=== PATIENT | male | born 1945 | race Caucasian/White ===

== ENCOUNTER 2020-04-11 05:13 | Emergency (ER) | payer MEDICARE, SELFPAY ==
--- NOTE | 2020-04-11 05:19 | ED_ITS ---
HPI - Altered Mental Status General Chief Complaint: Altered Mental Status Stated Complaint: altered Time Seen by Provider: 04/11/20 05:18 Source: patient and EMS Mode of arrival: EMS Limitations: altered mental status Related Data Allergies Allergy/AdvReac Type Severity Reaction Status Date / Time No Known Allergies Allergy Unverified 12/05/19 19:07 [No Known Allergies*] Review of Systems Review of Systems: Constitutional : No Weight loss, No Fever, No Chills, No Fatigue, No Malaise ENT/Mouth : No sore throat, No Rhinorrhea Eyes: No Eye Pain, No Swelling, No Redness Cardiovascular : No Chest Pain, No SOB, No Dyspnea on Exertion Respiratory : No Cough, No Sputum, No Wheezing Gastrointestinal : No Nausea, No Vomiting, No Diarrhea, No Constipation, No abdominal Pain, No Hematochezia, No Melena Genitourinary : No Dysuria, No Urinary Frequency, No Hematuria, Musculoskeletal : No joint pain, No Myalgias, No Joint Swelling Skin : No Skin Lesions, No rash Neuro : No Weakness, No Numbness, No Dizziness, No Headache Psych : No Anxiety/Panic, No Depression All other systems reviewed and are negative FOR[facility]LY [facility] Past Medical History Attestation statement: The following information was validated with the patient. Medical History Asthma Diabetes HTN (hypertension) Hyperlipemia Social History Social History (Updated 04/11/20 @ 05:20 by Margo Dejesus DO) Smoking Status: Never smoker Use of substances other than those prescribed or required for medical reasons: No Physical Exam Vital Signs: Vital Signs: Last Vital Signs Temp 98.4 F 04/11/20 05:55 Pulse 73 04/11/20 05:55 Resp 20 04/11/20 05:55 BP 154/86 H 04/11/20 05:55 Pulse Ox 93 04/11/20 05:55 Body Mass Index 32.3 Appearance: Alert. Oriented X2. No acute distress. Eyes: Pupils equal, round and reactive to light. ENT: Pharynx normal. Neck: Normal inspection. Neck supple. CVS: Normal heart rate and rhythm. Pulses normal. Respiratory: No respiratory distress. Breath sounds normal. Abdomen: Soft and non-tender. Skin: Skin warm and dry. Normal skin color. Normal skin turgor. Extremities: No lower extremity edema. No calf ttp Neuro: Oriented X 2. No motor deficit. No sensory deficit. No drift NIH Stroke Scale Internal: Initial- Upon Arrival Level of Consciousness: Alert Level of Consciousness Questions: Answers one question correctly Level of Consciousness Commands: Performs both tasks correctly Best Gaze: Normal Visual: No visual loss Facial Palsy: Normal Motor Arm (Right): No drift Motor Arm (Left): No drift Motor Leg (Right): No drift Motor Leg (Left): No drift Limb Ataxia: Absent Sensory: Normal Best Language: No aphasia Dysarthia: Normal Extinction and Inattention: No abnormality Score: 1 Course Course Course Narrative: found number in [facility] [phone] no answer - listed as a Naomi - patient states he has no NOK or emergency contacts signed out to Dr. Iglesias pending full workup MDM - Altered Mental Status MDM Narrative Medical decision making narrative: 74 yo male found driving, dressed up thought he was going to [employer] he is alert and oriented to person and place, last known well not known states he feels like himself no NOK to call at this time, no focal deficits, RNs noted he was wobbly upon standing - at this time no focal deficits other than confusion with last known well not known at this time, given unknown window he is not a tPa candidate, labs, CXR, UA, CT head ordered - dispo per results and findings. ECG Data ECG #1: Attestation: I personally reviewed and interpreted this ECG as follows: ECG interpretation date: 04/11/20 ECG interpretation time: 05:35 Interpretation: Rate: 76 Rhythm: NSR Alden: left Normal P waves. Normal HORACE. Normal QRS complex. ST T wave : inverted 1 and aVL, nonspecific V5-6, no JANE qTC: normal prior studies: unchanged 2018 The study has been interpreted contemporaneously by me. . Discharge Plan Discharge Clinical Impression: Altered mental status Qualifiers: Altered mental status type: unspecified Qualified Code(s): R41.82 - Altered mental status, unspecified
[2020-04-11 05:25] VITALS: BMI 32.3
--- NOTE | 2020-04-11 05:26 | ECG_ITS ---
Test Reason : AMS Blood Pressure : / mmHG Vent. Rate : 076 BPM Atrial Rate : 076 BPM P-R Int : 106 ms QRS Dur : 080 ms QT Int : 368 ms P-R-T Axes : 032 -11 088 degrees QTc Int : 414 ms Sinus rhythm with short NH with Premature atrial complexes Nonspecific T wave abnormality Abnormal ECG When compared with ECG of 25-AUG-2018 17:51, Premature atrial complexes Present Referred By: Margo Dejesus Electronically Signed By:TITO TAYLOR
--- NOTE | 2020-04-11 05:26 | CT_ITS ---
EXAMINATION: CT HEAD WITHOUT CONTRAST CLINICAL INFORMATION: Altered mental status COMPARISON: None TECHNIQUE: Contiguous axial imaging was performed from the skull base to vertex without intravenous administration of contrast. This CT examination was performed using dose optimization techniques as appropriate, variously including the following: *Automated exposure control *Adjustment of mA and/or kV according to patient size (this includes techniques or standardized protocols for targeted exams where dose is matched to indication/reason for exam; i.e. extremities or head) *Use of iterative reconstruction technique DLP: 795 mGy-cm FINDINGS: There is no evidence of acute intracranial hemorrhage or territorial infarction. No abnormal mass effect or midline shift is seen. Yeh to white matter differentiation is well preserved. No extra-axial fluid collections are identified. The ventricles are normal in size. There is moderate periventricular white matter hypoattenuation consistent with chronic small vessel ischemic disease. Moderate volume loss is noted. The osseous structures and soft tissues are normal. Mucosal thickening of the right sphenoid sinus. Opacification of the left mastoid air cells. CT/CT head/brain wo con IMPRESSION: No acute intracranial pathology. Chronic small vessel ischemic disease and volume loss.
--- NOTE | 2020-04-11 05:27 | XR_ITS ---
EXAMINATION: XR CHEST CLINICAL INFORMATION: Altered mental status COMPARISON: 04/28/2018 TECHNIQUE: Frontal view of the chest was obtained. FINDINGS: Lung volumes are symmetric. Linear left basilar opacity favors atelectasis. No additional consolidation bilaterally. No evidence of pneumothorax, pleural effusion, or pulmonary edema. The cardiomediastinal contour is unremarkable. No acute osseous findings are seen. XR/XR chest 1V IMPRESSION: No acute cardiopulmonary findings.
[2020-04-11 05:55] VITALS: BP 154/86; PULSE 73; RESP 20; TEMP 36.9; O2SAT 93
[2020-04-11 07:03] LABS: INTERNATIONAL NORM RATIO 1.2 (0.9-1.1); Prothrombin Time 14.3 SEC (10.8-13.0)
[2020-04-11 07:03] LABS: Basophils Percent Auto 0.3 % (0-2); Eosinophils Percent Auto 0.6 % (0-4); Imm Gran Abs Auto 0.01 X10*3/uL (0.00-0.03); Imm Gran Pct Auto 0.3 % (0.0-0.4); MANUAL DIFF FLAG SCAN; PLT CLUMP 1; SCAN SMEAR FLAG 1
[2020-04-11 07:05] LABS: Hematocrit 48.9 % (42-52); Hemoglobin 15.8 g/dl (14.0-18.0); Lymphocytes Percent Auto 28.3 % (20-40); Mean Corpuscular HGB Conc 32.3 g/dl (31.0-36.0); Mean Corpuscular Hemoglobin 31.9 pg (27.0-33.0); Mean Corpuscular Volume 98.8 fL (80-98); Mean Platelet Volume 11.8 fL (9.4-12.4); Monocytes Absolute Auto 0.4 X10*3/uL (0.1-1.2); Monocytes Percent Auto 12.5 % (2-11); Platelet Count 119 X10*3/uL (160-400); Red Blood Count 4.95 X10*6/uL (4.60-5.80); Red Cell Distribution Width 11.9 % (11.0-16.0); White Blood Count 3.4 X10*3/uL (4.8-10.8)
[2020-04-11 07:06] LABS: Partial Thromboplastin Time 35.2 SEC (24.1-38.0)
--- NOTE | 2020-04-11 07:09 | PC.NURSE ---
pt refused covid swab pt pulling it out while in process, pt was a difficult stick due to he pulls away and raises his legs. pt spoke in malay and stated that his better arm is his left and labs and iv obtained at the left ac 20g. this was a 2 assist to hold the pt arm. pt is talking with clear voice, only alert to who is now president. pt unable to tell us what he was doing all dressed up and driving from unknown to unknown, one time he says [email or web address] and then he say [employer]. staff members assisted with obtaining this information along with dr burns questions asked on pt arrival information was obtainable. pt has a flip cell phone but it is not connected to a service. pt is well dressed as if he was going to denominational, pt eyes light up when this was stated. labs and first set of cultures drawn, pt taken to ct, no s/s of injury noted. pt skin warm and dry. pt focus and tracks. moves all extremities with equa brayan strength. reprt given to Heraclio keys.
[2020-04-11 07:19] LABS: Ammonia 20 umol/L (13-55)
[2020-04-11 07:21] LABS: Ethanol < 10 mg/dL; Lactic Acid 1.1 mmol/L (0.5-2.0)
[2020-04-11 07:25] LABS: Alanine Aminotransferase 20 U/L (0-40); Albumin Level 4.1 g/dL (3.5-5.0); Alkaline Phosphatase 75 U/L (39-117); Anion Gap 15 (12-20); Aspartate Amino Transferase 30 U/L (5-37); Bilirubin Direct 0.3 mg/dL (0.0-0.5); Bilirubin Total 0.8 mg/dL (0.0-1.0); Blood Urea Nitrogen 15 mg/dL (9-16); Calcium 8.9 mg/dL (8.4-10.2); Carbon Dioxide 28 mmol/L (22-29); Chloride 104 mmol/L (96-108); Creatinine Clr Calc Pharmacy 67.7; Estimated Glomerular Filt Rate > 60; Glucose Random 168 mg/dL (60-115); Lipase 24 U/L (8-78); Magnesium 1.5 mg/dL (1.6-2.6); Potassium 4.1 mmol/l (3.3-5.1); Sodium 143 mmol/L (135-145); Total Protein 7.2 g/dL (6.5-8.0)
[2020-04-11 07:45] LABS: Thyroid Stimulating Hormone 0.97 uIU/mL (0.32-4.0)
[2020-04-11 07:53] LABS: Troponin-I High Sensitivity 8.4 ng/L (<3.5-35.0)
[2020-04-11 08:20] LABS: HCO3 VBG 30 mmol/L; PCO2 VBG 48 mmHg; PO2 VBG 39 mmHg; pH VBG 7.39 (7.32-7.43)
[2020-04-11 09:33] VITALS: BP 141/84; PULSE 74; RESP 18
[2020-04-11 11:47] LABS: Glucose, Whole Blood 171 mg/dL (60-115)
[2020-04-11 12:04] LABS: Glucose Urine UA 100 MG/DL (NEG); Leukocyte Esterase Urine NEG (NEG); Nitrite Urine NEG (NEG); PH 5.5 (5.0-8.0); Specific Gravity - Urine 1.025 (1.005-1.025); Urine Blood NEG (NEG); Urine Ketones 15 MG/DL (NEG); Urine Protein TRACE MG/DL (NEG-TRACE)
[2020-04-11 12:05] LABS: Appearance Urine CLEAR; Color Urine YELLOW
--- NOTE | 2020-04-11 12:10 | PC.NURSE ---
Physician and RN WOUND CARE at bedside. patient confused. physician indicated case management
--- NOTE | 2020-04-11 12:15 | ED.AMS ---
HPI - Altered Mental Status General Chief Complaint: Altered Mental Status Stated Complaint: altered Time Seen by Provider: 04/11/20 05:18 Source: patient and EMS Mode of arrival: EMS Limitations: altered mental status Related Data Previous Rx's Medication Instructions Recorded donepezil [Aricept] 10 mg PO BEDTIME #30 tab 04/11/20 Allergies Allergy/AdvReac Type Severity Reaction Status Date / Time No Known Allergies Allergy Unverified 12/05/19 19:07 [No Known Allergies*] [facility] Past Medical History Medical History Asthma Diabetes HTN (hypertension) Hyperlipemia Social History Social History (Updated 04/11/20 @ 05:20 by Margo Dejesus DO) Smoking Status: Never smoker Use of substances other than those prescribed or required for medical reasons: No Advance Directives: No Advance Directives Information Provided: No Physical Exam Vital Signs: Vital Signs: Last Vital Signs Temp 98.4 F 04/11/20 05:55 Pulse 74 04/11/20 09:33 Resp 18 04/11/20 09:33 BP 141/84 H 04/11/20 09:33 Pulse Ox 93 04/11/20 05:55 Body Mass Index 32.3 Course Course Course Narrative: Patient seen and re-evaluated clinically patient has moderate dementia which is going on for last few months per his family. Workup is negative otherwise. Family at bedside will discharge the patient home with family MDM - Altered Mental Status Lab Data Result diagrams: 04/11/20 06:35 04/11/20 06:35 Labs: Lab Results 04/11/20 04/11/20 04/11/20 Range/Units 06:34 06:34 06:34 WBC (4.8-10.8) X10*3/uL RBC (4.60-5.80) X10*6/uL Hgb (14.0-18.0) g/dl Hct (42-52) % MCV (80-98) fL MCH (27.0-33.0) pg MCHC (31.0-36.0) g/dl RDW (11.0-16.0) % Plt Count (160-400) X10*3/uL MPV (9.4-12.4) fL Immature Gran % (Auto) (0.0-0.4) % Neut % (Auto) (45-73) % Lymph % (Auto) (20-40) % [place] % (Auto) (2-11) % Eos % (Auto) (0-4) % Baso % (Auto) (0-2) % Lymph # (Auto) (1.2-4.9) X10*3/uL [place] # (Auto) (0.1-1.2) X10*3/uL Eos # (Auto) (0.0-0.4) X10*3/uL Baso # (Auto) (0.0-0.2) X10*3/uL Abs Immat Gran (auto) (0.00-0.03) X10*3/uL Absolute Neuts (auto) (2.0-8.3) X10*3/uL Absolute Nucleated RBC (0.0-0.012) X10*3/uL Nucleated RBC % (auto) (0.0-0.2) /100WBC Smear Tech's Comments PT 14.3 H (10.8-13.0) SEC INR 1.2 H (0.9-1.1) APTT 35.2 (24.1-38.0) SEC VBG pH (7.32-7.43) VBG pCO2 mmHg VBG pO2 mmHg VBG HCO3 mmol/L VBG O2 Saturation % VBG Base Excess mmol/L Sodium (135-145) mmol/L Potassium (3.3-5.1) mmol/l Chloride (96-108) mmol/L Carbon Dioxide (22-29) mmol/L Anion Gap (12-20) BUN (9-16) mg/dL Creatinine (0.5-1.4) mg/dL Estim Creat Clear Calc Estimated GFR POC Glucose (60-115) mg/dL Random Glucose (60-115) mg/dL Lactic Acid 1.1 (0.5-2.0) mmol/L Calcium (8.4-10.2) mg/dL Magnesium (1.6-2.6) mg/dL Total Bilirubin (0.0-1.0) mg/dL Direct Bilirubin (0.0-0.5) mg/dL AST (5-37) U/L ALT (0-40) U/L Alkaline Phosphatase (39-117) U/L Ammonia (13-55) umol/L Troponin I High Sens 8.4 (<3.5-35.0) ng/L Total Protein (6.5-8.0) g/dL Albumin (3.5-5.0) g/dL Lipase (8-78) U/L TSH (0.32-4.0) uIU/mL Urine Color Urine Appearance Urine pH (5.0-8.0) Ur Specific [place] (1.005-1.025) Urine Protein (NEG-TRACE) MG/DL Urine Glucose (UA) (NEG) MG/DL Urine Ketones (NEG) MG/DL Urine Blood (NEG) Urine Nitrite (NEG) Ur Leukocyte Esterase (NEG) Urine Opiates Screen (Not Detect) Ur Barbiturates Screen (Not Detect) Ur Phencyclidine Scrn (Not Detect) Ur Amphetamines Screen (Not Detect) U Benzodiazepines Scrn (Not Detect) Urine Cocaine Screen (Not Detect) U Marijuana (THC) Screen (Not Detect) Ethyl Alcohol mg/dL 04/11/20 04/11/20 04/11/20 Range/Units 06:34 06:35 06:35 WBC 3.4 L (4.8-10.8) X10*3/uL RBC 4.95 (4.60-5.80) X10*6/uL Hgb 15.8 (14.0-18.0) g/dl Hct 48.9 (42-52) % MCV 98.8 H (80-98) fL MCH 31.9 (27.0-33.0) pg MCHC 32.3 (31.0-36.0) g/dl RDW 11.9 (11.0-16.0) % Plt Count 119 L (160-400) X10*3/uL MPV 11.8 (9.4-12.4) fL Immature Gran % (Auto) 0.3 (0.0-0.4) % Neut % (Auto) 58.0 (45-73) % Lymph % (Auto) 28.3 (20-40) % [place] % (Auto) 12.5 H (2-11) % Eos % (Auto) 0.6 (0-4) % Baso % (Auto) 0.3 (0-2) % Lymph # (Auto) 1.0 L (1.2-4.9) X10*3/uL [place] # (Auto) 0.4 (0.1-1.2) X10*3/uL Eos # (Auto) 0.0 (0.0-0.4) X10*3/uL Baso # (Auto) 0.0 (0.0-0.2) X10*3/uL Abs Immat Gran (auto) 0.01 (0.00-0.03) X10*3/uL Absolute Neuts (auto) 2.0 (2.0-8.3) X10*3/uL Absolute Nucleated RBC 0.000 (0.0-0.012) X10*3/uL Nucleated RBC % (auto) 0.0 (0.0-0.2) /100WBC Smear Tech's Comments Not Reportable PT (10.8-13.0) SEC INR (0.9-1.1) APTT (24.1-38.0) SEC VBG pH (7.32-7.43) VBG pCO2 mmHg VBG pO2 mmHg VBG HCO3 mmol/L VBG O2 Saturation % VBG Base Excess mmol/L Sodium 143 (135-145) mmol/L Potassium 4.1 (3.3-5.1) mmol/l Chloride 104 (96-108) mmol/L Carbon Dioxide 28 (22-29) mmol/L Anion Gap 15 (12-20) BUN 15 (9-16) mg/dL Creatinine 1.04 (0.5-1.4) mg/dL Estim Creat Clear Calc 67.7 Estimated GFR > 60 POC Glucose (60-115) mg/dL Random Glucose 168 H (60-115) mg/dL Lactic Acid (0.5-2.0) mmol/L Calcium 8.9 (8.4-10.2) mg/dL Magnesium 1.5 L (1.6-2.6) mg/dL Total Bilirubin 0.8 (0.0-1.0) mg/dL Direct Bilirubin 0.3 (0.0-0.5) mg/dL AST 30 (5-37) U/L ALT 20 (0-40) U/L Alkaline Phosphatase 75 (39-117) U/L Ammonia (13-55) umol/L Troponin I High Sens (<3.5-35.0) ng/L Total Protein 7.2 (6.5-8.0) g/dL Albumin 4.1 (3.5-5.0) g/dL Lipase (8-78) U/L TSH 0.97 (0.32-4.0) uIU/mL Urine Color Urine Appearance Urine pH (5.0-8.0) Ur Specific [place] (1.005-1.025) Urine Protein (NEG-TRACE) MG/DL Urine Glucose (UA) (NEG) MG/DL Urine Ketones (NEG) MG/DL Urine Blood (NEG) Urine Nitrite (NEG) Ur Leukocyte Esterase (NEG) Urine Opiates Screen (Not Detect) Ur Barbiturates Screen (Not Detect) Ur Phencyclidine Scrn (Not Detect) Ur Amphetamines Screen (Not Detect) U Benzodiazepines Scrn (Not Detect) Urine Cocaine Screen (Not Detect) U Marijuana (THC) Screen (Not Detect) Ethyl Alcohol < 10 mg/dL 04/11/20 04/11/20 04/11/20 Range/Units 06:35 06:35 08:13 WBC (4.8-10.8) X10*3/uL RBC (4.60-5.80) X10*6/uL Hgb (14.0-18.0) g/dl Hct (42-52) % MCV (80-98) fL MCH (27.0-33.0) pg MCHC (31.0-36.0) g/dl RDW (11.0-16.0) % Plt Count (160-400) X10*3/uL MPV (9.4-12.4) fL Immature Gran % (Auto) (0.0-0.4) % Neut % (Auto) (45-73) % Lymph % (Auto) (20-40) % [place] % (Auto) (2-11) % Eos % (Auto) (0-4) % Baso % (Auto) (0-2) % Lymph # (Auto) (1.2-4.9) X10*3/uL [place] # (Auto) (0.1-1.2) X10*3/uL Eos # (Auto) (0.0-0.4) X10*3/uL Baso # (Auto) (0.0-0.2) X10*3/uL Abs Immat Gran (auto) (0.00-0.03) X10*3/uL Absolute Neuts (auto) (2.0-8.3) X10*3/uL Absolute Nucleated RBC (0.0-0.012) X10*3/uL Nucleated RBC % (auto) (0.0-0.2) /100WBC Smear Tech's Comments PT (10.8-13.0) SEC INR (0.9-1.1) APTT (24.1-38.0) SEC VBG pH 7.39 (7.32-7.43) VBG pCO2 48 mmHg VBG pO2 39 mmHg VBG HCO3 30 mmol/L VBG O2 Saturation 60.0 % VBG Base Excess 4.0 mmol/L Sodium (135-145) mmol/L Potassium (3.3-5.1) mmol/l Chloride (96-108) mmol/L Carbon Dioxide (22-29) mmol/L Anion Gap (12-20) BUN (9-16) mg/dL Creatinine (0.5-1.4) mg/dL Estim Creat Clear Calc Estimated GFR POC Glucose (60-115) mg/dL Random Glucose (60-115) mg/dL Lactic Acid (0.5-2.0) mmol/L Calcium (8.4-10.2) mg/dL Magnesium (1.6-2.6) mg/dL Total Bilirubin (0.0-1.0) mg/dL Direct Bilirubin (0.0-0.5) mg/dL AST (5-37) U/L ALT (0-40) U/L Alkaline Phosphatase (39-117) U/L Ammonia 20 (13-55) umol/L Troponin I High Sens (<3.5-35.0) ng/L Total Protein (6.5-8.0) g/dL Albumin (3.5-5.0) g/dL Lipase 24 (8-78) U/L TSH (0.32-4.0) uIU/mL Urine Color Urine Appearance Urine pH (5.0-8.0) Ur Specific [place] (1.005-1.025) Urine Protein (NEG-TRACE) MG/DL Urine Glucose (UA) (NEG) MG/DL Urine Ketones (NEG) MG/DL Urine Blood (NEG) Urine Nitrite (NEG) Ur Leukocyte Esterase (NEG) Urine Opiates Screen (Not Detect) Ur Barbiturates Screen (Not Detect) Ur Phencyclidine Scrn (Not Detect) Ur Amphetamines Screen (Not Detect) U Benzodiazepines Scrn (Not Detect) Urine Cocaine Screen (Not Detect) U Marijuana (THC) Screen (Not Detect) Ethyl Alcohol mg/dL 04/11/20 04/11/20 04/11/20 Range/Units 11:43 11:46 11:46 WBC (4.8-10.8) X10*3/uL RBC (4.60-5.80) X10*6/uL Hgb (14.0-18.0) g/dl Hct (42-52) % MCV (80-98) fL MCH (27.0-33.0) pg MCHC (31.0-36.0) g/dl RDW (11.0-16.0) % Plt Count (160-400) X10*3/uL MPV (9.4-12.4) fL Immature Gran % (Auto) (0.0-0.4) % Neut % (Auto) (45-73) % Lymph % (Auto) (20-40) % [place] % (Auto) (2-11) % Eos % (Auto) (0-4) % Baso % (Auto) (0-2) % Lymph # (Auto) (1.2-4.9) X10*3/uL [place] # (Auto) (0.1-1.2) X10*3/uL Eos # (Auto) (0.0-0.4) X10*3/uL Baso # (Auto) (0.0-0.2) X10*3/uL Abs Immat Gran (auto) (0.00-0.03) X10*3/uL Absolute Neuts (auto) (2.0-8.3) X10*3/uL Absolute Nucleated RBC (0.0-0.012) X10*3/uL Nucleated RBC % (auto) (0.0-0.2) /100WBC Smear Tech's Comments PT (10.8-13.0) SEC INR (0.9-1.1) APTT (24.1-38.0) SEC VBG pH (7.32-7.43) VBG pCO2 mmHg VBG pO2 mmHg VBG HCO3 mmol/L VBG O2 Saturation % VBG Base Excess mmol/L Sodium (135-145) mmol/L Potassium (3.3-5.1) mmol/l Chloride (96-108) mmol/L Carbon Dioxide (22-29) mmol/L Anion Gap (12-20) BUN (9-16) mg/dL Creatinine (0.5-1.4) mg/dL Estim Creat Clear Calc Estimated GFR POC Glucose 171 H (60-115) mg/dL Random Glucose (60-115) mg/dL Lactic Acid (0.5-2.0) mmol/L Calcium (8.4-10.2) mg/dL Magnesium (1.6-2.6) mg/dL Total Bilirubin (0.0-1.0) mg/dL Direct Bilirubin (0.0-0.5) mg/dL AST (5-37) U/L ALT (0-40) U/L Alkaline Phosphatase (39-117) U/L Ammonia (13-55) umol/L Troponin I High Sens (<3.5-35.0) ng/L Total Protein (6.5-8.0) g/dL Albumin (3.5-5.0) g/dL Lipase (8-78) U/L TSH (0.32-4.0) uIU/mL Urine Color YELLOW Urine Appearance CLEAR Urine pH 5.5 (5.0-8.0) Ur Specific [place] 1.025 (1.005-1.025) Urine Protein TRACE (NEG-TRACE) MG/DL Urine Glucose (UA) 100 H (NEG) MG/DL Urine Ketones 15 (NEG) MG/DL Urine Blood NEG (NEG) Urine Nitrite NEG (NEG) Ur Leukocyte Esterase NEG (NEG) Urine Opiates Screen Not Detected (Not Detect) Ur Barbiturates Screen Not Detected (Not Detect) Ur Phencyclidine Scrn Not Detected (Not Detect) Ur Amphetamines Screen Not Detected (Not Detect) U Benzodiazepines Scrn Not Detected (Not Detect) Urine Cocaine Screen Not Detected (Not Detect) U Marijuana (THC) Screen Not Detected (Not Detect) Ethyl Alcohol mg/dL Discharge Plan Discharge Clinical Impression: Dementia Qualifiers: Dementia type: Alzheimer's Alzheimer's disease onset: late-onset Dementia behavioral disturbance: without behavioral disturbance Qualified Code(s): G30.1 - Alzheimer's disease with late onset Patient Disposition: Home, Self-Care Instructions: Dementia (ED) Additional Instructions: Follow with PCP/neurologist for further workup Take medication as advised daily Prescriptions: New donepezil [Aricept] 10 mg tablet 10 mg PO BEDTIME Qty: 30 RF: 2 Referrals: Fiona Woods MD [Physician] - 2 days Branden Mitchell MD [Physician] - 1 week Interventions: ED Discharge Assessment Last Done: 04/11/20 13:23 Discharge Date/Time: 04/11/20 13:24
[2020-04-11 12:33] LABS: Amphetamine Screen Urine Not Detected (Not Detect); Barbiturates, Urine Not Detected (Not Detect); Benzodiazepines Screen Urine Not Detected (Not Detect); Cannabinoid Screen Urine Not Detected (Not Detect); Cocaine Screen Urine Not Detected (Not Detect); Opiate Screen Urine Not Detected (Not Detect); Phencyclidine Screen Urine Not Detected (Not Detect)
--- NOTE | 2020-04-11 12:53 | MHC.CM.ED ---
Received case management consult from Dr Iglesias. Patient came to the ER with AMS. Staff has been unable to reach family. T/W spoke with Naomi via telephone at [phone]. Naomi was in the waiting room. Met with Naomi and patient. Patient lives alone, ambulates independently and is Naomi's [place]. Patient is not homebound and will not qualify for VNA. PCP verified as Fiona Woods at [facility]. Naomi will transport patient home. Dr Iglesias and Heraclio HARTLEY aware. Continue to monitor for d/c needs.
== END 2020-04-11 13:24 | disposition home or self-care (01) ==
PROVIDERS: Emergency Medicine; Emergency Provider Internal Medicine
DX: G30.1 Alzheimer's disease with late onset (principal); Z79.899 Other long term (current) drug therapy
CPT/HCPCS: 36415; 70450; 71045; 80048; 80076; 80307; 80320; 81003; 82140; 82803; 82947; 83605; 83690; 83735; 84443; 84484; 85025; 85610; 85730; 87040; 93005; 99284

== ENCOUNTER 2020-04-17 12:23 | Inpatient (IN) | payer MEDICARE, SELFPAY ==
[2020-04-17 12:34] VITALS: BP 139/79; BP 144/68; PULSE 74; PULSE 88; RESP 18; TEMP 36.3; O2SAT 86; O2SAT 98; BMI 27.8
--- NOTE | 2020-04-17 12:48 | ED_ITS ---
HPI - General Adult General Chief complaint: General Medical Stated complaint: ams, fall sat Time Seen by Provider: 04/17/20 12:48 Source: EMS Mode of arrival: EMS Limitations: no limitations History of Present Illness HPI narrative: This is a 72-year-old male with apparent history of dementia, diabetes, hypertension, hyperlipidemia, asthma who presents today with complaint of generalized weakness with decreased p.o. intake and apparently with his dementia he has been progressively getting worse over the past several weeks per EMS family call for this patient was here recently in the hospital in this emergency room on April 11 for dementia related Behavioral disturbance. Patient offers no complaints very poor historian he apparently is at baseline and is alert but is not oriented to person place or time or event. Apparently also had some vague complaint of hip pain he is ambulatory. Offers no complaints to me has full range of motion. Attempted to call the listed number for his Kendy left voicemail to return call. Onset (ago): week(s) Treatments prior to arrival: none Related Data Previous Rx's Medication Instructions Recorded donepezil [Aricept] 10 mg PO BEDTIME #30 tab 04/11/20 Allergies Allergy/AdvReac Type Severity Reaction Status Date / Time No Known Allergies Allergy Unverified 12/05/19 19:07 [No Known Allergies*] Review of Systems Review of Systems: Yes Unobtainable due to mental status PMFSH Past Medical History Medical History Asthma Diabetes HTN (hypertension) Hyperlipemia Social History Social History (Updated 04/11/20 @ 05:20 by Margo Dejesus DO) Smoking Status: Never smoker Advance Directives: No Advance Directives Information Provided: No Physical Exam Vital Signs: Vital Signs: Last Vital Signs Temp 97.3 F 04/17/20 12:34 Pulse 85 04/17/20 16:00 Resp 20 04/17/20 16:00 BP 155/81 H 04/17/20 16:00 Pulse Ox 93 04/17/20 16:00 Body Mass Index 27.8 Reviewed Const: Other: Disheveled, frail, elderly Hypoxic at 85% on room air improved to 93% with 2 L Nutritional Appearance: average body habitus Orientation/consciousness: oriented to person HENMT: Head: Yes normal to inspection Ears: hearing grossly normal bilaterally Eyes: General: appearance normal, both eyes and all related structures Visual Marinelli: normal visual marinelli by confrontation Neck: Neck: Yes normal visual inspection, No positive Brudzinski's sign, No positive Kernig's sign and No tender Thyroid: Thyroid normal Chest: Chest palpation & inspection: normal inspection of the chest Resp: Effort & Inspection: normal respiratory effort Auscultation: clear to auscultation bilaterally and diminished lung sounds Cardio: Jugular venous distension: no JVD Rate: regular rate Rhythm: regular rhythm Heart sounds: S1 normal heart sound present and S2 normal heart sound present GI: Inspection: Yes normal to inspection Palpation (GI): Soft to palpation Percussion: Yes normal to percussion Auscultation: normal bowel sounds : General: Yes no CVA tenderness Back/Spine/Pelvis: Back: no CVA tenderness Skin: General skin exam: no rashes or lesions noted Neuro: General: oriented to person Extrem: General: Yes normal to inspection Course Course Course Narrative: 1310 In review 74-year-old male with above history very limited history secondary to his apparent dementia diagnosis presenting with generalized weakness and noted to be hypoxic does have history of asthma but no recent illness but apparent dementia related visit on the . He offers no complaints though very unreliable. Will check labs including COVID certification labs head CT, chest x-ray and attempt to consulted . Reevaluation(s) Reevaluation #1: 1400 CBC without leukocytosis Remains stable on oxygen Labs still pending I attempted to call still no answer. Left voicemail to return call. Reevaluation #2: D-dimer today is 575 Age adjusted D-dimer 720 within normal limits. Chemistries with elevated ferritin and CRP, procalcitonin pending. Chest x-ray shows; interval development of mild infiltrates in the lower lung marinelli, left greater than right. Will go ahead and administer empiric dose of antibiotics while awaiting the rest of the labs. Reevaluation #3: COVID-19 positive remained stable. Requiring oxygen. Case discussed with hospitalist for admission. Additional Reevaluation(s): I was finally able to get in touch with who is actually his girlfriend and not the primary decision making she referred us to speak to patient's sister Amrita Henderson at [phone] and as well as brother Tyree at [phone] Update was provided regarding patient's condition as well as in detail discussion regarding whose actual decision maker and it will be the sister Amrita Code status was discussed there are not sure at this time Full code at this time Consultations Consultation #1: [id number] Hospitalist Kelsy Medical Decision Making Lab Data Result diagrams: 04/17/20 14:00 04/17/20 14:00 Labs: Lab Results 04/17/20 04/17/20 04/17/20 Range/Units 14:00 14:00 14:00 WBC 4.8 (4.8-10.8) X10*3/uL RBC 4.92 (4.60-5.80) X10*6/uL Hgb 15.4 (14.0-18.0) g/dl Hct 48.5 (42-52) % MCV 98.6 H (80-98) fL MCH 31.3 (27.0-33.0) pg MCHC 31.8 (31.0-36.0) g/dl RDW 12.0 (11.0-16.0) % Plt Count 221 D (160-400) X10*3/uL MPV 10.7 (9.4-12.4) fL Immature Gran % (Auto) Cancelled Neut % (Auto) Cancelled Lymph % (Auto) Cancelled Jasper % (Auto) Cancelled Eos % (Auto) Cancelled Baso % (Auto) Cancelled Lymph # (Auto) Cancelled Jasper # (Auto) Cancelled Eos # (Auto) Cancelled Baso # (Auto) Cancelled Abs Immat Gran (auto) Cancelled Absolute Neuts (auto) Cancelled Absolute Nucleated RBC 0.000 (0.0-0.012) X10*3/uL Nucleated RBC % (auto) 0.0 (0.0-0.2) /100WBC Neutrophils % (Manual) 83 H (45-73) % Band Neutrophils % 0 L (3-5) % Lymphocytes % (Manual) 9 L (20-40) % Atypical Lymphs % (Man) 1 (0-6) % Monocytes % (Manual) 7 (2-11) % Abs Neuts (Manual) 4.0 (2.2-7.9) X10*3/uL Lymphocytes # (Manual) 0.4 L (0.6-4.8) X10*3/uL Monocytes # (Manual) 0.3 (0.0-1.2) X10*3/uL Platelet Estimate NORMAL (NORMAL) Large Platelets PRESENT Plt Morphology Comment NORMAL RBC Morphology NOTED Microcytosis 3+ Rosemary Cells 3+ PT 16.0 H (10.8-13.0) SEC INR 1.3 H (0.9-1.1) APTT 56.7 H D (24.1-38.0) SEC D-Dimer 575 NG/ML Sodium 144 (135-145) mmol/L Potassium 4.6 (3.3-5.1) mmol/L Chloride 103 (96-108) mmol/L Carbon Dioxide 27 (22-29) mmol/L Anion Gap 19 (12-20) BUN 24 H D (9-16) mg/dL Creatinine 1.36 (0.5-1.4) mg/dL Estim Creat Clear Calc 46.7 Estimated GFR 52 Random Glucose 418 H* (60-115) mg/dL Lactic Acid (0.5-2.0) mmol/L Calcium 9.2 (8.4-10.2) mg/dL Ferritin (20-250) ng/mL Total Bilirubin 0.8 (0.0-1.0) mg/dL AST 22 (5-37) U/L ALT 16 (0-40) U/L Alkaline Phosphatase 72 (39-117) U/L Lactate Dehydrogenase 264 (118-273) U/L Troponin I High Sens (<3.5-35.0) ng/L C-Reactive Protein 19.07 H (< or = 0.50) mg/dL Total Protein 7.4 (6.5-8.0) g/dL Albumin 3.7 (3.5-5.0) g/dL Procalcitonin ng/mL Urine Color Urine Appearance Urine pH (5.0-8.0) Ur Specific [place] (1.005-1.025) Urine Protein (NEG-TRACE) MG/DL Urine Glucose (UA) (NEG) MG/DL Urine Ketones (NEG) MG/DL Urine Blood (NEG) Urine Nitrite (NEG) Ur Leukocyte Esterase (NEG) Urine RBC (0) /HPF Urine WBC (0-4) /HPF Ur Squamous Epith Cells /LPF Urine Bacteria /LPF Coronavirus (PCR) (Negative) Influenza Type A (PCR) (Negative) Influenza Type B (PCR) (Negative) RSV RNA Qual (PCR) (Negative) 04/17/20 04/17/20 04/17/20 Range/Units 14:00 14:00 14:00 WBC (4.8-10.8) X10*3/uL RBC (4.60-5.80) X10*6/uL Hgb (14.0-18.0) g/dl Hct (42-52) % MCV (80-98) fL MCH (27.0-33.0) pg MCHC (31.0-36.0) g/dl RDW (11.0-16.0) % Plt Count (160-400) X10*3/uL MPV (9.4-12.4) fL Immature Gran % (Auto) Neut % (Auto) Lymph % (Auto) Jasper % (Auto) Eos % (Auto) Baso % (Auto) Lymph # (Auto) Jasper # (Auto) Eos # (Auto) Baso # (Auto) Abs Immat Gran (auto) Absolute Neuts (auto) Absolute Nucleated RBC (0.0-0.012) X10*3/uL Nucleated RBC % (auto) (0.0-0.2) /100WBC Neutrophils % (Manual) (45-73) % Band Neutrophils % (3-5) % Lymphocytes % (Manual) (20-40) % Atypical Lymphs % (Man) (0-6) % Monocytes % (Manual) (2-11) % Abs Neuts (Manual) (2.2-7.9) X10*3/uL Lymphocytes # (Manual) (0.6-4.8) X10*3/uL Monocytes # (Manual) (0.0-1.2) X10*3/uL Platelet Estimate (NORMAL) Large Platelets Plt Morphology Comment RBC Morphology Microcytosis Rosemary Cells PT (10.8-13.0) SEC INR (0.9-1.1) APTT (24.1-38.0) SEC D-Dimer NG/ML Sodium (135-145) mmol/L Potassium (3.3-5.1) mmol/L Chloride (96-108) mmol/L Carbon Dioxide (22-29) mmol/L Anion Gap (12-20) BUN (9-16) mg/dL Creatinine (0.5-1.4) mg/dL Estim Creat Clear Calc Estimated GFR Random Glucose (60-115) mg/dL Lactic Acid (0.5-2.0) mmol/L Calcium (8.4-10.2) mg/dL Ferritin 355 H (20-250) ng/mL Total Bilirubin (0.0-1.0) mg/dL AST (5-37) U/L ALT (0-40) U/L Alkaline Phosphatase (39-117) U/L Lactate Dehydrogenase (118-273) U/L Troponin I High Sens 7.8 (<3.5-35.0) ng/L C-Reactive Protein (< or = 0.50) mg/dL Total Protein (6.5-8.0) g/dL Albumin (3.5-5.0) g/dL Procalcitonin 0.15 ng/mL Urine Color Urine Appearance Urine pH (5.0-8.0) Ur Specific [place] (1.005-1.025) Urine Protein (NEG-TRACE) MG/DL Urine Glucose (UA) (NEG) MG/DL Urine Ketones (NEG) MG/DL Urine Blood (NEG) Urine Nitrite (NEG) Ur Leukocyte Esterase (NEG) Urine RBC (0) /HPF Urine WBC (0-4) /HPF Ur Squamous Epith Cells /LPF Urine Bacteria /LPF Coronavirus (PCR) (Negative) Influenza Type A (PCR) (Negative) Influenza Type B (PCR) (Negative) RSV RNA Qual (PCR) (Negative) 04/17/20 04/17/20 04/17/20 Range/Units 14:01 14:02 15:42 WBC (4.8-10.8) X10*3/uL RBC (4.60-5.80) X10*6/uL Hgb (14.0-18.0) g/dl Hct (42-52) % MCV (80-98) fL MCH (27.0-33.0) pg MCHC (31.0-36.0) g/dl RDW (11.0-16.0) % Plt Count (160-400) X10*3/uL MPV (9.4-12.4) fL Immature Gran % (Auto) Neut % (Auto) Lymph % (Auto) Jasper % (Auto) Eos % (Auto) Baso % (Auto) Lymph # (Auto) [place]asper # (Auto) Eos # (Auto) Baso # (Auto) Abs Immat Gran (auto) Absolute Neuts (auto) Absolute Nucleated RBC (0.0-0.012) X10*3/uL Nucleated RBC % (auto) (0.0-0.2) /100WBC Neutrophils % (Manual) (45-73) % Band Neutrophils % (3-5) % Lymphocytes % (Manual) (20-40) % Atypical Lymphs % (Man) (0-6) % Monocytes % (Manual) (2-11) % Abs Neuts (Manual) (2.2-7.9) X10*3/uL Lymphocytes # (Manual) (0.6-4.8) X10*3/uL Monocytes # (Manual) (0.0-1.2) X10*3/uL Platelet Estimate (NORMAL) Large Platelets Plt Morphology Comment RBC Morphology Microcytosis Temple Cells PT (10.8-13.0) SEC INR (0.9-1.1) APTT (24.1-38.0) SEC D-Dimer NG/ML Sodium (135-145) mmol/L Potassium (3.3-5.1) mmol/L Chloride (96-108) mmol/L Carbon Dioxide (22-29) mmol/L Anion Gap (12-20) BUN (9-16) mg/dL Creatinine (0.5-1.4) mg/dL Estim Creat Clear Calc Estimated GFR Random Glucose (60-115) mg/dL Lactic Acid 1.9 (0.5-2.0) mmol/L Calcium (8.4-10.2) mg/dL Ferritin (20-250) ng/mL Total Bilirubin (0.0-1.0) mg/dL AST (5-37) U/L ALT (0-40) U/L Alkaline Phosphatase (39-117) U/L Lactate Dehydrogenase (118-273) U/L Troponin I High Sens (<3.5-35.0) ng/L C-Reactive Protein (< or = 0.50) mg/dL Total Protein (6.5-8.0) g/dL Albumin (3.5-5.0) g/dL Procalcitonin ng/mL Urine Color YELLOW Urine Appearance CLEAR Urine pH 5.5 (5.0-8.0) Ur Specific [place] 1.025 (1.005-1.025) Urine Protein 1+ H (NEG-TRACE) MG/DL Urine Glucose (UA) >=1000 H (NEG) MG/DL Urine Ketones 15 (NEG) MG/DL Urine Blood TRACE (NEG) Urine Nitrite NEG (NEG) Ur Leukocyte Esterase NEG (NEG) Urine RBC 1-4 (0) /HPF Urine WBC 0-2 (0-4) /HPF Ur Squamous Epith Cells 1+ /LPF Urine Bacteria NONE /LPF Coronavirus (PCR) POSITIVE A (Negative) Influenza Type A (PCR) NEGATIVE (Negative) Influenza Type B (PCR) NEGATIVE (Negative) RSV RNA Qual (PCR) NEGATIVE (Negative) Imaging Data Chest x-ray: Radiologist's impression: [address] [id number] ReportSigned Patient: Dagoberto HendersonMR#: [id number]: [id number]:[id number]/Sex: 74 / MADM Date: 04/17/20Loc: EDAttending Dr: Ordering Physician: Pastor Combs NP Date of Service: 04/17/20 Procedure(s): XR chest 1V Accession Number(s): [id number] cc: Pastor Combs REGISTERED MEDICAL ASSISTANT~ EXAMINATION: XR CHEST CLINICAL INFORMATION: Acute mental status change. COMPARISON: 04/11/2020 chest radiograph. TECHNIQUE: Frontal view of the chest was obtained. FINDINGS: There has been interval development of mild opacities in the lower lung marinelli, left greater than right. The heart and mediastinal structures are unremarkable. XR/XR chest 1V IMPRESSION: Interval development of mild infiltrates in the lower lung marinelli, left greater than right. Dictated By:ALESIA GRANT MDSigned By:<Electronically signed by ALESIA GRANT MD in OV>04/17/20 1420 DD/ 1251TD/TT: [employer] Supervisor: VALERIA Hip/pelvis: Radiologist's impression: [address] [id number] ReportSigned Patient: Dagoberto Henderson#: [id number]: [id number]:[id number]/Sex: 74 / MADM Date: 04/17/20Loc: DIONI.EDAttending Dr: Ordering Physician: Pastor Combs NP Date of Service: 04/17/20 Procedure(s): XR hip BI w PEL1V Accession Number(s): [id number] cc: Pastor Combs REGISTERED MEDICAL ASSISTANT~ EXAMINATION: XR BILATERAL HIPS WITH AP PELVIS CLINICAL INFORMATION: Bilateral hip pain. COMPARISON: None. TECHNIQUE: AP view of the pelvis and single views of each hip were obtained. FINDINGS: The bones and soft tissues are normal. No fracture. Sacroiliac and hip joints are normal. Pubic symphysis is normal. A 1 cm radiopaque density overlies the visualized right midabdomen. XR/XR hip BI w PEL1V IMPRESSION: 1. No significant pelvic/hip abnormality. 2. 1.0 cm radiopaque density overlying the right midabdomen may represent an intrarenal calculus. Dictated By:ALESIA GRANT MDSigned By:<Electronically signed by ALESIA GRANT MD in OV>04/17/20 1428 DD/ 1251TD/TT: [employer] Supervisor: VALERIA CT scan - head: Radiologist's impression: [place] [id number] Scan ReportSigned Patient: Katie Henderson#: [id number]: 8Acct:[id number]/Sex: 74 / MADM Date: 04/17/20Loc: HO.EDAttending Dr: Ordering Physician: Pastor Combs NP Date of Service: 04/17/20 Procedure(s): CT head/brain wo con Accession Number(s): [id number] cc: Pastor Combs REGISTERED MEDICAL ASSISTANT~ EXAMINATION: CT HEAD WITHOUT CONTRAST CLINICAL INFORMATION: AMS COMPARISON: None TECHNIQUE: Contiguous axial imaging was performed from the skull base to vertex without intravenous administration of contrast. This CT examination was performed using dose optimization techniques as appropriate, variously including the following: *Automated exposure control *Adjustment of mA and/or kV according to patient size (this includes techniques or standardized protocols for targeted exams where dose is matched to indication/reason for exam; i.e. extremities or head) *Use of iterative reconstruction technique DLP: 768 mGy-cm FINDINGS: There is no evidence of acute intracranial hemorrhage or territorial infarction. No abnormal mass effect or midline shift is seen. Yeh to white matter differentiation is well preserved. No extra-axial fluid collections are identified. The lateral ventricles are symmetrical but enlarged. There is diffuse periventricular hypodensity seen in both cerebral hemispheres without mass effect. The osseous structures and soft tissues are normal. There is diffuse mucoperiosteal thickening right sphenoid sinus. Rest of the paranasal sinuses are clear. CT/CT head/brain wo con IMPRESSION: No acute intracranial process seen. Age-related cerebral volume loss with chronic small vessel ischemic changes. Dictated By:AVERY RESTREPO MDSigned By:<Electronically signed by AVERY RESTREPO MD in OV>04/17/20 1449 DD/ 1303TD/TT: [employer] Supervisor: [facility] [place] Data Interpretation: Normal sinus rhythm Possible Left atrial enlargement Nonspecific T wave abnormality Abnormal ECG When compared with ECG of 11-APR-2020 05:31, Premature atrial complexes are no longer Present Discharge Plan Discharge Clinical Impression: COVID-19, Respiratory failure with hypoxia Patient Disposition: Admitted As Inpatient Prescriptions: No Action donepezil [Aricept] 10 mg tablet 10 mg PO BEDTIME Qty: 30 RF: 2
--- NOTE | 2020-04-17 12:51 | ECG_ITS ---
Test Reason : WEAKNESS Blood Pressure : / mmHG Vent. Rate : 090 BPM Atrial Rate : 090 BPM P-R Int : 122 ms QRS Dur : 086 ms QT Int : 356 ms P-R-T Axes : 046 002 064 degrees QTc Int : 435 ms Normal sinus rhythm Possible Left atrial enlargement Nonspecific T wave abnormality Abnormal ECG When compared with ECG of 11-APR-2020 05:31, Premature atrial complexes are no longer Present Referred By: Pastor Combs Electronically Signed By:Nathan Vidal
--- NOTE | 2020-04-17 12:51 | XR_ITS ---
EXAMINATION: XR BILATERAL HIPS WITH AP PELVIS CLINICAL INFORMATION: Bilateral hip pain. COMPARISON: None. TECHNIQUE: AP view of the pelvis and single views of each hip were obtained. FINDINGS: The bones and soft tissues are normal. No fracture. Sacroiliac and hip joints are normal. Pubic symphysis is normal. A 1 cm radiopaque density overlies the visualized right midabdomen. XR/XR hip BI w PEL1V IMPRESSION: 1. No significant pelvic/hip abnormality. 2. 1.0 cm radiopaque density overlying the right midabdomen may represent an intrarenal calculus.
--- NOTE | 2020-04-17 12:51 | XR_ITS ---
EXAMINATION: XR CHEST CLINICAL INFORMATION: Acute mental status change. COMPARISON: 04/11/2020 chest radiograph. TECHNIQUE: Frontal view of the chest was obtained. FINDINGS: There has been interval development of mild opacities in the lower lung palencia, left greater than right. The heart and mediastinal structures are unremarkable. XR/XR chest 1V IMPRESSION: Interval development of mild infiltrates in the lower lung palencia, left greater than right.
--- NOTE | 2020-04-17 13:03 | CT_ITS ---
EXAMINATION: CT HEAD WITHOUT CONTRAST CLINICAL INFORMATION: AMS COMPARISON: None TECHNIQUE: Contiguous axial imaging was performed from the skull base to vertex without intravenous administration of contrast. This CT examination was performed using dose optimization techniques as appropriate, variously including the following: *Automated exposure control *Adjustment of mA and/or kV according to patient size (this includes techniques or standardized protocols for targeted exams where dose is matched to indication/reason for exam; i.e. extremities or head) *Use of iterative reconstruction technique DLP: 768 mGy-cm FINDINGS: There is no evidence of acute intracranial hemorrhage or territorial infarction. No abnormal mass effect or midline shift is seen. Yeh to white matter differentiation is well preserved. No extra-axial fluid collections are identified. The lateral ventricles are symmetrical but enlarged. There is diffuse periventricular hypodensity seen in both cerebral hemispheres without mass effect. The osseous structures and soft tissues are normal. There is diffuse mucoperiosteal thickening right sphenoid sinus. Rest of the paranasal sinuses are clear. CT/CT head/brain wo con IMPRESSION: No acute intracranial process seen. Age-related cerebral volume loss with chronic small vessel ischemic changes.
[2020-04-17 14:00] VITALS: BP 150/70; PULSE 80; RESP 20; O2SAT 91
[2020-04-17 14:21] LABS: Hematocrit 48.5 % (42-52); Hemoglobin 15.4 g/dl (14.0-18.0); Mean Corpuscular HGB Conc 31.8 g/dl (31.0-36.0); Mean Corpuscular Hemoglobin 31.3 pg (27.0-33.0); Mean Corpuscular Volume 98.6 fL (80-98); Mean Platelet Volume 10.7 fL (9.4-12.4); Platelet Count 221 X10*3/uL (160-400); Red Blood Count 4.92 X10*6/uL (4.60-5.80); White Blood Count 4.8 X10*3/uL (4.8-10.8)
[2020-04-17 14:29] LABS: INTERNATIONAL NORM RATIO 1.3 (0.9-1.1)
[2020-04-17 14:31] LABS: Partial Thromboplastin Time 56.7 SEC (24.1-38.0)
[2020-04-17 14:56] LABS: Lactic Acid 1.9 mmol/L (0.5-2.0)
[2020-04-17 14:57] LABS: Atypical Lymphs Percent Manual 1 % (0-6); Lymphocytes Absolute Manual 0.4 X10*3/uL (0.6-4.8); Lymphocytes Percent Manual 9 % (20-40); Monocytes Absolute Manual 0.3 X10*3/uL (0.0-1.2); Monocytes Percent Manual 7 % (2-11); Neutrophils Percent Manual 83 % (45-73)
[2020-04-17 14:58] LABS: Band Neutrophils Percent 0 % (3-5)
[2020-04-17 14:59] LABS: Microcytosis 3+; RBC Morphology NOTED
[2020-04-17 15:00] LABS: Burr Cells 3+
[2020-04-17 15:01] LABS: Alanine Aminotransferase 16 U/L (0-40); Albumin Level 3.7 g/dL (3.5-5.0); Alkaline Phosphatase 72 U/L (39-117); Anion Gap 19 (12-20); Aspartate Amino Transferase 22 U/L (5-37); Bilirubin Total 0.8 mg/dL (0.0-1.0); Blood Urea Nitrogen 24 mg/dL (9-16); C Reactive Protein 19.07 mg/dL (< or = 0.50); Calcium 9.2 mg/dL (8.4-10.2); Carbon Dioxide 27 mmol/L (22-29); Chloride 103 mmol/L (96-108); Creatinine Clr Calc Pharmacy 46.7; Estimated Glomerular Filt Rate 52; Lactate Dehydrogenase 264 U/L (118-273); Potassium 4.6 mmol/L (3.3-5.1); Sodium 144 mmol/L (135-145); Total Protein 7.4 g/dL (6.5-8.0); Troponin-I High Sensitivity 7.8 ng/L (<3.5-35.0)
[2020-04-17 15:03] LABS: Influenza A PCR NEGATIVE (Negative); Influenza B PCR NEGATIVE (Negative); Resp Syncy Virus RNA Qual PCR NEGATIVE (Negative); SARS COV2 PCR INHOUSE POSITIVE (Negative)
[2020-04-17 15:03] LABS: Large Platelet PRESENT; Platelet Estimate NORMAL (NORMAL); Platelet Morphology Comment NORMAL
[2020-04-17 15:09] LABS: Glucose Random 418 mg/dL (60-115)
[2020-04-17 15:15] LABS: Ferritin 355 ng/mL (20-250)
[2020-04-17 15:22] LABS: Procalcitonin 0.15 ng/mL
[2020-04-17 15:53] LABS: Glucose Urine UA >=1000 MG/DL (NEG); Leukocyte Esterase Urine NEG (NEG); Nitrite Urine NEG (NEG); PH 5.5 (5.0-8.0); Specific Gravity - Urine 1.025 (1.005-1.025); Urine Blood TRACE (NEG); Urine Ketones 15 MG/DL (NEG); Urine Protein 1+ MG/DL (NEG-TRACE)
[2020-04-17 15:54] LABS: Appearance Urine CLEAR; Color Urine YELLOW
[2020-04-17 16:00] VITALS: BP 155/81; PULSE 85; RESP 20; O2SAT 93
[2020-04-17 16:07] LABS: Squamous Epithelial Cell Urine 1+ /LPF; WBC Urine 0-2 /HPF (0-4)
[2020-04-17] MEDS: cefTRIAXone sodium 1 GM in 0.9 % Sodium Chloride 50 ML IV (16:14)
[2020-04-17 16:17] LABS: D Dimer 575 NG/ML
--- NOTE | 2020-04-17 16:19 | PC.NURSE ---
Pt has been difficult with care. Refusing lab draws, becoming combative with staff when they attempted to obtain second set of blood cultures. Pastor aware. Allowed patient to calm down, given urinal with PCT assistance. Voided small amount. Redirected to wear oxygen as sats are in the 80s on room air. O2 sat up to 93% on 4l nc. Finally able to hang antibiotic once second set obtained and patient cooperative. Family updated on plan by Pastor [employer]
--- NOTE | 2020-04-17 18:09 | P.EN_ITS ---
Event Note Date of Service: 04/18/20 Event Note: Patient was here on because of confusion and thought to be ad vanced dementia with behavioral disturbances and home and came back because of generalized weakness and decreased p.o. intake. Patient was seen examined at bedside: Seems to be confused? Able to follow simple commands, knows his name and probably year in closely Poor historian Able to tell the does not have any cough or phlegm or any abdominal pain or nausea or vomiting or any urinary complaints This patient is seen and examined with APC. Lab imaging, EKG reviewed. Ferritin C-reactive protein are elevated, procalcitonin is 0.[address] head negative Physical exam : Cvs: rrr, [id number] , no murmur res: fair air entry ,no rhonchii or wheezing abd: no rebound or guarding ,nt, bs present. ext pulses present , no cyanosis assessment and plan coordinated in APCs note, Agree with the plan in addition: Differentials are: Demand dementia with behavioral disturbances Getting admitted for toxic metabolic encephalopathy probably related to dehydration/COVID infection Patient received dexamethasone, azithromycin and ceftriaxone unclear why Hydrate patient with gentle hydration IV fluid sloan Staff was told to feed trial Since new COVID symptoms/acute respiratory failure will check with ID if needed remdesivir
[2020-04-17] MEDS: dexAMETHasone sod phosphate 4 MG/ML VIAL 6 MG IVPUSH (18:10)
[2020-04-17] MEDS: Azithromycin 500 MG in 0.9 % Sodium Chloride 250 ML 125 MG IV (18:11)
[2020-04-17] MEDS: Insulin Regular, Human 100 UNIT/ML 3 ML VIAL IVPUSH (18:12)
--- NOTE | 2020-04-17 18:18 | PM.IMHP ---
History of Present Illness Date of Service: 04/17/20 <MELECIO Ambrocio - Last Filed: 04/17/20 18:39> Chief Complaint: decreased PO intake <MELECIO Ambrocio - Last Filed: 04/17/20 18:39> This is a 74-year-old male who was sent to the emergency department by his due to decreased p.o. intake. He had a fall on April 11 and was evaluated in the emergency department and discharged back home. Today he was found to be hypoxic with an oxygen saturation of 86% on room air. Chest x-ray showed bilateral infiltrates. Coronavirus swab was positive. The patient is a poor historian and is unable to provide any significant history. He reports he does not know why he is in the ED and he feels just fine. <MELECIO Ambrocio - Last Filed: 04/17/20 18:39> Review of Systems Review of Systems: Yes all other systems are reviewed and are negative <MELECIO Ambrocio - Last Filed: 04/17/20 18:39> Constitutional: Constitutional: Denies chills and Denies fever(s) <MELECIO Ambrocio - Last Filed: 04/17/20 18:39> Cardiovascular: Cardiovascular: Denies chest pain <MELECIO Ambrocio - Last Filed: 04/17/20 18:39> Respiratory: Respiratory: Denies cough <MELECIO Ambrocio - Last Filed: 04/17/20 18:39> Gastrointestinal: Gastrointestinal: Denies abdominal pain <MELECIO Ambrocio - Last Filed: 04/17/20 18:39> Neurologic: Reports confusion <MELECIO Ambrocio - Last Filed: 04/17/20 18:39> Psychiatric: Psychiatric: Reports confusion <MELECIO Ambrocio Last Filed: 04/17/20 18:39> [facility] Medical History: Medical History Asthma Diabetes HTN (hypertension) Hyperlipemia <MELECIO Ambrocio Last Filed: 04/17/20 18:39> Pertinent family history: unable to obtain family history due to underlying dementia <MELECIO Ambrocio - Last Filed: 04/17/20 18:39> Family history: reviewed and not pertinent <MELECIO Ambrocio - Last Filed: 04/17/20 18:39> Social History: Social History (Updated 04/17/20 @ 18:30 by MELECIO Ambrocio) Housing: Unknown / Unable to assess Unable to assess alcohol history related to: Unknown Alcohol intake: never Smoking Status: Never smoker Use of substances other than those prescribed or required for medical reasons: No Advance Directives: No Advance Directives Information Provided: No <MELECIO Ambrocio - Last Filed: 04/17/20 18:39> Meds Allergies/Adverse reactions: Allergies Allergy/AdvReac Type Severity Reaction Status Date / Time No Known Allergies Allergy Unverified 12/05/19 19:07 [No Known Allergies*] <MELECIO Ambrocio - Last Filed: 04/17/20 18:39> Home medications: Home Medications Medication Instructions Recorded Confirmed Type insulin glargine [Lantus Solostar 40 unit SUBCUT BID 04/17/20 04/17/20 History U-100 Insulin] metformin 500 mg PO BID 04/17/20 04/17/20 History <MELECIO Ambrocio - Last Filed: 04/17/20 18:39> Physical Exam Vital Signs and Narrative: Vital Signs: Last Vital Signs Temp 97.3 F 04/17/20 12:34 Pulse 85 04/17/20 16:00 Resp 20 04/17/20 16:00 BP 155/81 H 04/17/20 16:00 Pulse Ox 93 04/17/20 16:00 Body Mass Index 27.8 <MELECIO Ambrocio - Last Filed: 04/17/20 18:39> Const: General: alert, awake and confusion <MELECIO Ambrocio - Last Filed: 04/17/20 18:39> Nutritional Appearance: well nourished <MELECIO Ambrocio - Last Filed: 04/17/20 18:39> Orientation/consciousness: oriented to person and confusion <MELECIO Ambrocio - Last Filed: 04/17/20 18:39> HENMT: Head: Yes normocephalic and Yes atraumatic <MELECIO Ambrocio - Last Filed: 04/17/20 18:39> Eyes: Sclerae: sclerae normal <MELECIO Ambrocio - Last Filed: 04/17/20 18:39> Chest: Chest palpation & inspection: normal inspection of the chest <MELECIO Ambrocio - Last Filed: 04/17/20 18:39> Resp: Effort & Inspection: normal respiratory effort, able to speak in complete sentences and no respiratory distress <MELECIO Ambrocio - Last Filed: 04/17/20 18:39> Cardio: Rate: regular rate <MELECIO Ambrocio - Last Filed: 04/17/20 18:39> Rhythm: regular rhythm <MELECIO Ambrocio - Last Filed: 04/17/20 18:39> GI: Palpation (GI): Soft to palpation and nontender <MELECIO Ambrocio - Last Filed: 04/17/20 18:39> Skin: General skin exam: no rashes or lesions noted <MELECIO Ambrocio - Last Filed: 04/17/20 18:39> Neuro: General: oriented to person and confusion <MELECIO Ambrocio - Last Filed: 04/17/20 18:39> Cranial nerves: Yes CN's II-XII intact bilaterally and Yes Bilaterally intact EOM present <MELECIO Ambrocio - Last Filed: 04/17/20 18:39> Extrem: General: Yes normal to inspection <MELECIO Ambrocio - Last Filed: 04/17/20 18:39> Results Labs CBC and Chem 7: : 04/18/20 06:57 04/18/20 06:57 <MELECIO Ambrocio - Last Filed: 04/17/20 18:39> Labs: Laboratory Results - last 24 hr 04/17/20 04/17/20 04/17/20 14:00 14:00 14:00 MCV 98.6 H MCH 31.3 MCHC 31.8 RDW 12.0 Plt Count 221 D MPV 10.7 Immature Gran % (Auto) Cancelled Neut % (Auto) Cancelled Lymph % (Auto) Cancelled [place] % (Auto) Cancelled Eos % (Auto) Cancelled Baso % (Auto) Cancelled Lymph # (Auto) Cancelled [place] # (Auto) Cancelled Eos # (Auto) Cancelled Baso # (Auto) Cancelled Abs Immat Gran (auto) Cancelled Absolute Neuts (auto) Cancelled Absolute Nucleated RBC 0.000 Nucleated RBC % (auto) 0.0 Neutrophils % (Manual) 83 H Band Neutrophils % 0 L Lymphocytes % (Manual) 9 L Atypical Lymphs % (Man) 1 Monocytes % (Manual) 7 Abs Neuts (Manual) 4.0 Lymphocytes # (Manual) 0.4 L Monocytes # (Manual) 0.3 Platelet Estimate NORMAL Large Platelets PRESENT Plt Morphology Comment NORMAL RBC Morphology NOTED Microcytosis 3+ Newton Cells 3+ PT 16.0 H INR 1.3 H APTT 56.7 H D D-Dimer 575 Anion Gap 19 Estim Creat Clear Calc 46.7 Estimated GFR 52 Random Glucose 418 H* Lactic Acid Calcium 9.2 Ferritin Total Bilirubin 0.8 AST 22 ALT 16 Alkaline Phosphatase 72 Lactate Dehydrogenase 264 Troponin I High Sens C-Reactive Protein 19.07 H Total Protein 7.4 Albumin 3.7 Procalcitonin Urine Color Urine Appearance Urine pH Ur Specific [place] Urine Protein Urine Glucose (UA) Urine Ketones Urine Blood Urine Nitrite Ur Leukocyte Esterase Urine RBC Urine WBC Ur Squamous Epith Cells Urine Bacteria Coronavirus (PCR) Influenza Type A (PCR) Influenza Type B (PCR) RSV RNA Qual (PCR) 04/17/20 04/17/20 04/17/20 14:00 14:00 14:00 MCV MCH MCHC RDW Plt Count MPV Immature Gran % (Auto) Neut % (Auto) Lymph % (Auto) [place] % (Auto) Eos % (Auto) Baso % (Auto) Lymph # (Auto) [place] # (Auto) Eos # (Auto) Baso # (Auto) Abs Immat Gran (auto) Absolute Neuts (auto) Absolute Nucleated RBC Nucleated RBC % (auto) Neutrophils % (Manual) Band Neutrophils % Lymphocytes % (Manual) Atypical Lymphs % (Man) Monocytes % (Manual) Abs Neuts (Manual) Lymphocytes # (Manual) Monocytes # (Manual) Platelet Estimate Large Platelets Plt Morphology Comment RBC Morphology Microcytosis Newton Cells PT INR APTT D-Dimer Anion Gap Estim Creat Clear Calc Estimated GFR Random Glucose Lactic Acid Calcium Ferritin 355 H Total Bilirubin AST ALT Alkaline Phosphatase Lactate Dehydrogenase Troponin I High Sens 7.8 C-Reactive Protein Total Protein Albumin Procalcitonin 0.15 Urine Color Urine Appearance Urine pH Ur Specific [place] Urine Protein Urine Glucose (UA) Urine Ketones Urine Blood Urine Nitrite Ur Leukocyte Esterase Urine RBC Urine WBC Ur Squamous Epith Cells Urine Bacteria Coronavirus (PCR) Influenza Type A (PCR) Influenza Type B (PCR) RSV RNA Qual (PCR) 04/17/20 04/17/20 04/17/20 14:01 14:02 15:42 MCV MCH MCHC RDW Plt Count MPV Immature Gran % (Auto) Neut % (Auto) Lymph % (Auto) [place] % (Auto) Eos % (Auto) Baso % (Auto) Lymph # (Auto) [place] # (Auto) Eos # (Auto) Baso # (Auto) Abs Immat Gran (auto) Absolute Neuts (auto) Absolute Nucleated RBC Nucleated RBC % (auto) Neutrophils % (Manual) Band Neutrophils % Lymphocytes % (Manual) Atypical Lymphs % (Man) Monocytes % (Manual) Abs Neuts (Manual) Lymphocytes # (Manual) Monocytes # (Manual) Platelet Estimate Large Platelets Plt Morphology Comment RBC Morphology Microcytosis Newton Cells PT INR APTT D-Dimer Anion Gap Estim Creat Clear Calc Estimated GFR Random Glucose Lactic Acid 1.9 Calcium Ferritin Total Bilirubin AST ALT Alkaline Phosphatase Lactate Dehydrogenase Troponin I High Sens C-Reactive Protein Total Protein Albumin Procalcitonin Urine Color YELLOW Urine Appearance CLEAR Urine pH 5.5 Ur Specific [place] 1.025 Urine Protein 1+ H Urine Glucose (UA) >=1000 H Urine Ketones 15 Urine Blood TRACE Urine Nitrite NEG Ur Leukocyte Esterase NEG Urine RBC 1-4 Urine WBC 0-2 Ur Squamous Epith Cells 1+ Urine Bacteria NONE Coronavirus (PCR) POSITIVE A Influenza Type A (PCR) NEGATIVE Influenza Type B (PCR) NEGATIVE RSV RNA Qual (PCR) NEGATIVE <MELECIO Ambrocio - Last Filed: 04/17/20 18:39> Imaging Radiologist's Impressions: Impressions Chest X-Ray 04/17/20 12:51 IMPRESSION: Interval development of mild infiltrates in the lower lung palencia, left greater than right. Hip/Pelvis X-Ray 04/17/20 12:51 IMPRESSION: 1. No significant pelvic/hip abnormality. 2. 1.0 cm radiopaque density overlying the right midabdomen may represent an intrarenal calculus. Head CT 04/17/20 13:03 IMPRESSION: No acute intracranial process seen. Age-related cerebral volume loss with chronic small vessel ischemic changes. <MELECIO Ambrocio - Last Filed: 04/17/20 18:39> Assessment and Plan (1) COVID-19: Status: Acute <MELECIO Ambrocio - Last Filed: 04/17/20 18:39> (2) Respiratory failure with hypoxia: Status: Acute <MELECIO Ambrocio - Last Filed: 04/17/20 18:39> This is a 74-year-old Nigerien-speaking male with a history dementia, diabetes, asthma, hypertension, dyslipidemia who presents to the emergency department with decreased p.o. intake found to be hypoxic secondary to coronavirus Acute respiratory failure with hypoxia Pneumonia secondary to COVID-19 -supplemental oxygen as needed -IV dexamethasone -ID consult dementia Continue Aricept Diabetes Unclear dose of Lantus, will decrease at lower dose, can up titrate prn -SSI POCs DVT prophylaxis-lovenox This case was discussed with Dr. Morgan <MELECIO Ambrocio - Last Filed: 04/17/20 18:39>
[2020-04-17 19:02] VITALS: BP 138/77; PULSE 81; RESP 20; TEMP 36.7; O2SAT 91
[2020-04-17 20:07] LABS: Glucose, Whole Blood 390 mg/dL (60-115)
--- NOTE | 2020-04-17 20:07 | PC.NURSE ---
md moonfied of bgl of 390
[2020-04-17] MEDS: Donepezil HCl 10 MG TABLET PO (20:13)
[2020-04-17] MEDS: Insulin Lispro 100 UNIT/ML 3 ML VIAL SUBCUT ×2 (20:13→20:14)
[2020-04-17] MEDS: Insulin Glargine,Hum.rec.anlog 100 UNIT/ML 10 ML VIAL 25 UNIT SUBCUT (20:19)
[2020-04-17 20:43] LABS: Glucose, Whole Blood 389 mg/dL (60-115)
[2020-04-17] MEDS: Enoxaparin Sodium 40 MG/0.4 ML SYRINGE SUBCUT (21:05)
--- NOTE | 2020-04-17 21:06 | PC.NURSE ---
1800:pt calm in bed. plan for admission covid postivie. 2100: medicated with night meds. patient passed po challenge. pt did not eat supper.
[2020-04-17 22:33] LABS: Glucose, Whole Blood 290 mg/dL (60-115)
[2020-04-18] VITALS (8 sets, daily range): BP systolic 113–124; BP diastolic 65–95; PULSE 67–86; RESP 16–23; TEMP 36.4–37.1; O2SAT 92–96
--- NOTE | 2020-04-18 01:38 | PC.NURSE ---
PATIENT REPOSITIONED. SINUS RHYTHM ON DIRECTOR OF CLINICAL APPLICATIONS. BREATHING EVEN, NON-LABORED. NO APPARENT DISTRESS.
[2020-04-18] MEDS: 0.9 % Sodium Chloride Flush 3 ML SYRINGE IVFLUSH ×4 (02:25→21:32)
[2020-04-18 07:19] LABS: Hematocrit 43.7 % (42-52); Hemoglobin 13.7 g/dl (14.0-18.0); Mean Corpuscular HGB Conc 31.4 g/dl (31.0-36.0); Mean Corpuscular Hemoglobin 30.8 pg (27.0-33.0); Mean Corpuscular Volume 98.2 fL (80-98); Mean Platelet Volume 10.9 fL (9.4-12.4); Platelet Count 232 X10*3/uL (160-400); Red Blood Count 4.45 X10*6/uL (4.60-5.80); Red Cell Distribution Width 11.9 % (11.0-16.0)
[2020-04-18 07:48] LABS: Anion Gap 13 (12-20); Blood Urea Nitrogen 27 mg/dL (9-16); Calcium 8.6 mg/dL (8.4-10.2); Carbon Dioxide 30 mmol/L (22-29); Chloride 104 mmol/L (96-108); Creatinine Clr Calc Pharmacy 54.7; Estimated Glomerular Filt Rate > 60; Glucose Random 347 mg/dL (60-115); Sodium 142 mmol/L (135-145)
[2020-04-18] MEDS: 0.9 % Sodium Chloride 1,000 ML 50 ML IVCONT (09:26)
[2020-04-18] MEDS: Insulin Lispro 100 UNIT/ML 3 ML VIAL SUBCUT ×5 (09:30→21:49)
[2020-04-18] MEDS: dexAMETHasone sod phosphate 4 MG/ML VIAL 6 MG IVPUSH (09:31)
[2020-04-18] MEDS: Insulin Glargine,Hum.rec.anlog 100 UNIT/ML 10 ML VIAL 25 UNIT SUBCUT ×2 (09:32→21:32)
[2020-04-18 11:18] LABS: Glucose, Whole Blood 299 mg/dL (60-115)
[2020-04-18 11:41] LABS: Glucose, Whole Blood 288 mg/dL (60-115)
[2020-04-18] MEDS: Remdesivir 200 MG in 0.9 % Sodium Chloride 210 ML 105 MG IV (12:55)
--- NOTE | 2020-04-18 14:42 | P.PNIM_ITS ---
Subjective Subjective Date of Service: 04/18/20 Interval History: COVID infection, advanced dementia. Review of Systems Patient seems to be more awake and talking able to answer more questions. Denies any chest pain or abdominal pain or urinary complaints or nausea or vomiting. Physical Exam Vital Signs: Vital Signs: Last Vital Signs Temp 98.1 F 04/17/20 19:02 Pulse 74 04/18/20 13:13 Resp 18 04/18/20 13:13 BP 118/72 04/18/20 13:13 Pulse Ox 96 04/18/20 13:13 Body Mass Index 27.8 Physical exam: Constitutional: Not in acute distress Cvs: [id number], [id number] , no murmur res: clear to auscultation ,no rhonchii or wheezing abd: no rebound or guarding ,nt, bs present. ext pulses present , no cyanosis neuro: axo3 , nonfocal. Objective Data Current Medications Generic Name Dose Route Start Last Admin Trade Name Freq PRN Reason Stop Dose Admin Acetaminophen 650 mg 04/17/20 19:08 Acetaminophen 325 Mg Tablet PO Q6H PRN Pain, Mild (Pain Scale 1-3) Albuterol Sulfate 2 puff 04/17/20 19:08 Albuterol Sulfate 90 Mcg 8 Gm Inhaler INHALE Q4H PRN Shortness of Breath Dexamethasone Sodium Phosphate 6 mg 04/18/20 09:00 04/18/20 09:31 Dexamethasone Sod Phosphate 4 Mg/Ml Vial IVPUSH 6 mg DAILY MARJORIE Administration Docusate Sodium 100 mg 04/17/20 19:08 Docusate Sodium 100 Mg Capsule PO DAILY PRN Constipation Donepezil HCl 10 mg 04/17/20 21:00 04/17/20 20:13 Donepezil Hcl 10 Mg Tablet PO 10 mg BEDTIME MARJORIE Administration Enoxaparin Sodium 40 mg 04/17/20 22:00 04/17/20 21:05 Enoxaparin Sodium 40 Mg/0.4 Ml Syringe SUBCUT 40 mg Q24H MARJORIE Administration Sodium Chloride 1,000 mls @ 50 mls/hr 04/18/20 08:15 04/18/20 09:26 Ns IVCONT 50 mls/hr .Q20H MARJORIE Administration Remdesivir 100 mg/ Sodium 230 mls @ 115 mls/hr 04/19/20 12:00 Chloride IV 04/22/20 13:59 Q24H [facility] Insulin Glargine 25 unit 04/17/20 21:00 04/18/20 09:32 Insulin Glargine,Hum.Rec.Anlog 100 Unit/Ml 10 Ml Vial SUBCUT 25 unit BID MARJORIE Administration Insulin Human Lispro 0 unit 04/17/20 21:00 04/18/20 12:54 Insulin Lispro 100 Unit/Ml 3 Ml Vial SUBCUT 6 unit QIDACHS MARJORIE Administration Protocol Ondansetron HCl 4 mg 04/17/20 19:08 Ondansetron Hcl 4 Mg/2 Ml Vial IVPUSH Q8H PRN Nausea and Vomiting Pharmacy Consult 1 each 04/17/20 18:11 Consult Rx Perform Med Rec MISCELLANE ONCE PRN Consult order Sodium Chloride 3 ml 04/18/20 00:00 04/18/20 09:26 0.9 % Sodium Chloride Flush 3 Ml Syringe IVFLUSH 3 ml QSHIFT MARJORIE Administration Labs CBC & Chem 7: 04/18/20 06:57 04/18/20 06:57 Assessment and Plan (1) COVID-19: Status: Acute (2) Respiratory failure with hypoxia: Status: Acute Assessment and Plan: 74-year-old Georgian-speaking male with a history dementia, diabetes, asthma, hypertension, dyslipidemia who presents to the emergency department with decreased p.o. intake found to be hypoxic secondary to coronavirus 1.Acute respiratory failure with hypoxia Pneumonia secondary to COVID-19 continue dexamethasone,supplemental oxygen as needed ID consult 2.dementia Continue Aricept 3.Diabetes: fs in 200-300 range Unclear dose of Lantus, will decrease at lower dose, can up titrate prn SSI POCs
--- NOTE | 2020-04-18 17:50 | PC.NURSE ---
pt ambulated to the bathroom with steady gait, had a large bowel movement
[2020-04-18 20:49] LABS: Glucose, Whole Blood 356 mg/dL (60-115)
[2020-04-18] MEDS: Donepezil HCl 10 MG TABLET PO (21:22)
[2020-04-18] MEDS: Enoxaparin Sodium 40 MG/0.4 ML SYRINGE SUBCUT (21:22)
--- NOTE | 2020-04-18 21:40 | W.PM.IDCN ---
History of Present Illness Data of Consult Service Date: 04/18/20 Requesting physician: Mike Morgan Primary Care Provider: Unknown Physician HPI Reason for consult: shortness of breath He presents to hospital with shortness of breath. He has hypoxia with 2 liters oxygen 90s ,80s without oxygen He hs diagnosis COVID Review of Systems Review of Systems: Yes Unobtainable due to mental status PMFSH Past Medical History Medical History Asthma Diabetes HTN (hypertension) Hyperlipemia Family History Family history: reviewed and not pertinent Social History Social History Housing: Unknown / Unable to assess Unable to assess alcohol history related to: Unknown Alcohol intake: never Smoking Status: Never smoker Use of substances other than those prescribed or required for medical reasons: No Advance Directives: No Advance Directives Information Provided: No Meds Allergies Allergy/AdvReac Type Severity Reaction Status Date / Time No Known Allergies Allergy Unverified 12/05/19 19:07 [No Known Allergies*] Home Medications Medication Instructions Recorded Confirmed Type insulin glargine [Lantus Solostar 40 unit SUBCUT BID 04/17/20 04/17/20 History U-100 Insulin] metformin 500 mg PO BID 04/17/20 04/17/20 History Physical Exam Vital Signs: Vital Signs: Last Vital Signs Temp 97.8 F 04/18/20 20:00 Pulse 82 04/18/20 20:00 Resp 22 H 04/18/20 20:00 BP 124/76 04/18/20 19:54 Pulse Ox 92 04/18/20 20:00 Body Mass Index 27.8 Const: General: cooperative HENMT: Head: Yes normal to inspection Mouth: Normal oral and palatal mucosa present Eyes: General: appearance normal, both eyes and all related structures Resp: Effort & Inspection: normal respiratory effort Cardio: Rate: regular rate Rhythm: regular rhythm GI: Palpation (GI): Soft to palpation and nontender Skin: General skin exam: no rashes or lesions noted Extrem: General: Yes normal to inspection Assessment and Plan (1) COVID-19: Problem details: He has COVID last week He has oxygen requirements He has no opportunistic infection Status: Acute Would continue Dexamethasone Would start Remdesivir per protocol Oxygen supplementation (2) Respiratory failure with hypoxia: Status: Acute Results Labs CBC & Chem 7: 04/18/20 06:57 04/18/20 06:57 Labs: Short CBC 04/18/20 Range/Units 06:57 WBC 4.0 L (4.8-10.8) X10*3/uL Hgb 13.7 L (14.0-18.0) g/dl Hct 43.7 (42-52) % Plt Count 232 (160-400) X10*3/uL BMP 04/18/20 06:57 Sodium 142 Potassium 5.0 Chloride 104 Carbon Dioxide 30 H BUN 27 H Creatinine 1.16 Calcium 8.6 D Microbiology Microbiology Results: Microbiology 04/17/20 14:58 Blood - Venous Blood Culture - Preliminary No growth after 24 hours. 04/17/20 14:00 Blood - Venous Blood Culture - Preliminary No growth after 24 hours.
[2020-04-19] VITALS: BP 128/76; PULSE 77; RESP 18; TEMP 36.7; O2SAT 93
[2020-04-19 03:27] VITALS: BP 117/75; PULSE 71; RESP 18; TEMP 36.8; O2SAT 91
[2020-04-19 05:19] LABS: Glucose, Whole Blood 365 mg/dL (60-115)
[2020-04-19] MEDS: 0.9 % Sodium Chloride 1,000 ML 50 ML IVCONT (06:00)
[2020-04-19 07:16] LABS: Alanine Aminotransferase 42 U/L (0-40); Alkaline Phosphatase 61 U/L (39-117); Anion Gap 15 (12-20); Aspartate Amino Transferase 61 U/L (5-37); Bilirubin Direct 0.2 mg/dL (0.0-0.5); Bilirubin Total 0.6 mg/dL (0.0-1.0); Blood Urea Nitrogen 29 mg/dL (9-16); Calcium 8.5 mg/dL (8.4-10.2); Carbon Dioxide 27 mmol/L (22-29); Chloride 107 mmol/L (96-108); Creatinine Clr Calc Pharmacy 66.2; Estimated Glomerular Filt Rate > 60; Glucose Random 107 mg/dL (60-115); Potassium 3.9 mmol/L (3.3-5.1); Sodium 145 mmol/L (135-145); Total Protein 6.1 g/dL (6.5-8.0)
[2020-04-19 07:17] LABS: Glucose, Whole Blood 117 mg/dL (60-115)
[2020-04-19 07:30] VITALS: BP 137/81; PULSE 68; RESP 18; TEMP 36.4; O2SAT 98
[2020-04-19] MEDS: Insulin Glargine,Hum.rec.anlog 100 UNIT/ML 10 ML VIAL 25 UNIT SUBCUT ×2 (09:43→21:25)
[2020-04-19] MEDS: 0.9 % Sodium Chloride Flush 3 ML SYRINGE IVFLUSH ×2 (09:43→17:01)
[2020-04-19] MEDS: dexAMETHasone sod phosphate 4 MG/ML VIAL 6 MG IVPUSH (09:43)
[2020-04-19 11:06] LABS: Glucose, Whole Blood 266 mg/dL (60-115)
[2020-04-19 11:10] VITALS: BP 128/83; PULSE 69; RESP 18; TEMP 36.8; O2SAT 96
[2020-04-19] MEDS: Remdesivir 100 MG in 0.9 % Sodium Chloride 230 ML 115 MG IV (11:48)
[2020-04-19] MEDS: Insulin Lispro 100 UNIT/ML 3 ML VIAL SUBCUT ×3 (11:48→21:26)
--- NOTE | 2020-04-19 15:05 | HO.PM.IMPN ---
Subjective Subjective Date of Service: 04/19/20 Interval History: Acute hypoxemic gets with respiratory failure secondary to covid infection Review of Systems Shortness of breath improving,, cough Denies any abdominal pain, mental status is also improving. Physical Exam Vital Signs: Vital Signs: Last Vital Signs Temp 98.2 F 04/19/20 11:10 Pulse 69 04/19/20 11:10 Resp 18 04/19/20 11:10 BP 128/83 04/19/20 11:10 Pulse Ox 96 04/19/20 11:10 Body Mass Index 27.8 Physical exam: Constitution: Not in acute distress, pleasant [place]-speaking male, eating breakfast HENT: Eyes: Anicteric, no discharge Cvs: [id number], [id number] , no murmur res: Fair air entry ,no rhonchii or wheezing abd: no rebound or guarding ,nt, bs present. ext pulses present , no cyanosis neuro: More awake and alert, nonfocal. Objective Data Current Medications Generic Name Dose Route Start Last Admin Trade Name Freq PRN Reason Stop Dose Admin Acetaminophen 650 mg 04/17/20 19:08 Acetaminophen 325 Mg Tablet PO Q6H PRN Pain, Mild (Pain Scale 1-3) Albuterol Sulfate 2 puff 04/17/20 19:08 Albuterol Sulfate 90 Mcg 8 Gm Inhaler INHALE Q4H PRN Shortness of Breath Dexamethasone Sodium Phosphate 6 mg 04/18/20 09:00 04/19/20 09:43 Dexamethasone Sod Phosphate 4 Mg/Ml Vial IVPUSH 6 mg DAILY MARJORIE Administration Docusate Sodium 100 mg 04/17/20 19:08 Docusate Sodium 100 Mg Capsule PO DAILY PRN Constipation Donepezil HCl 10 mg 04/17/20 21:00 04/18/20 21:22 Donepezil Hcl 10 Mg Tablet PO 10 mg BEDTIME MARJORIE Administration Enoxaparin Sodium 40 mg 04/17/20 22:00 04/18/20 21:22 Enoxaparin Sodium 40 Mg/0.4 Ml Syringe SUBCUT 40 mg Q24H MARJORIE Administration Remdesivir 100 mg/ Sodium 230 mls @ 115 mls/hr 04/19/20 12:00 04/19/20 14:13 Chloride IV 04/22/20 13:59 Infused Q24H MARJORIE Infusion Insulin Glargine 25 unit 04/17/20 21:00 04/19/20 09:43 Insulin Glargine,Hum.Rec.Anlog 100 Unit/Ml 10 Ml Vial SUBCUT 25 unit BID MARJORIE Administration Insulin Human Lispro 0 unit 04/17/20 21:00 04/19/20 11:48 Insulin Lispro 100 Unit/Ml 3 Ml Vial SUBCUT 6 unit QIDACHS MARJORIE Administration Protocol Ondansetron HCl 4 mg 04/17/20 19:08 Ondansetron Hcl 4 Mg/2 Ml Vial IVPUSH Q8H PRN Nausea and Vomiting Pharmacy Consult 1 each 04/17/20 18:11 Consult Rx Perform Med Rec MISCELLANE ONCE PRN Consult order Sodium Chloride 3 ml 04/18/20 00:00 04/19/20 09:43 0.9 % Sodium Chloride Flush 3 Ml Syringe IVFLUSH 3 ml QSHIFT MARJORIE Administration Labs CBC & Chem 7: 04/18/20 06:57 04/19/20 05:58 Microbiology Microbiology Results: Microbiology 04/17/20 14:58 Blood - Venous Blood Culture - Preliminary No growth after 24 hours. 04/17/20 14:00 Blood - Venous Blood Culture - Preliminary No growth after 24 hours. Assessment and Plan (1) COVID-19: Problem details: He has COVID last week He has oxygen requirements He has no opportunistic infection Status: Acute (2) Respiratory failure with hypoxia: Status: Acute Assessment and Plan: 74-year-old [place]-speaking male with a history dementia, diabetes, asthma, hypertension, dyslipidemia who presents to the emergency department with decreased p.o. intake found to be hypoxic secondary to coronavirus 1.Acute respiratory failure with hypoxia Pneumonia secondary to COVID-19 continue dexamethasone, remdesvir,supplemental oxygen as needed ID eval appreciated 2.dementia Continue Aricept 3.Diabetes: flactuating,fs in 120-200 range Unclear dose of Lantus, will decrease at lower dose, can up titrate prn SSI POCs
[2020-04-19 15:29] VITALS: BP 118/77; PULSE 70; RESP 18; TEMP 36.6; O2SAT 95
--- NOTE | 2020-04-19 15:47 | MHC.CM.PN ---
PT ON ISOLATION UNIT DUE TO COVID 19. CM ATTEMPTED TO CONTACT PT AT THE CELL PHONE NUMBER LISTED ([phone]) HOWEVER IT WAS ANSWERED BY HIS FRIEND ANETA BEASLEY. ANETA IS LISTED PTS PRIMARY CONTACT. ANETA REPORTS THE PT LIVES ALONE AND WORKS HER [employer] DAILY. SHE REPORTS HE ALSO DRIVES AND IS 100% INDEPENDENT WITH HIS OWN CARE AND MOBILITY. PT DOES NOT HAVE A HCP ON FILE BUT PER PREVIOUS CM NOTES HE DOES HAVE ONE. PTS LAST LISTED PCP WAS [facility], HOWEVER CM UNABLE TO VERIFY DUE TO IT BEING MONDAY. IMM DELIVERED TO ANETA AND A COPY WILL BE MAILED CURRENT DC PLAN IS HOME WITH NO SERVICES ANETA REPORTS SHE WILL PICK PT UP AT DC
[2020-04-19 15:58] LABS: Glucose, Whole Blood 339 mg/dL (60-115)
[2020-04-19 19:16] VITALS: BP 137/78; PULSE 67; RESP 18; TEMP 37.1; O2SAT 94
[2020-04-19 19:46] LABS: Glucose, Whole Blood 377 mg/dL (60-115)
[2020-04-19] MEDS: Donepezil HCl 10 MG TABLET PO (21:25)
[2020-04-19] MEDS: Enoxaparin Sodium 40 MG/0.4 ML SYRINGE SUBCUT (21:25)
[2020-04-20] VITALS: BP 129/70; PULSE 62; RESP 18; TEMP 36.3; O2SAT 94
[2020-04-20] MEDS: 0.9 % Sodium Chloride Flush 3 ML SYRINGE IVFLUSH ×4 (00:31→17:05)
[2020-04-20 04:00] VITALS: BP 116/66; PULSE 56; RESP 18; TEMP 36.7; O2SAT 93
[2020-04-20 06:41] LABS: Alanine Aminotransferase 33 U/L (0-40); Albumin Level 2.7 g/dL (3.5-5.0); Alkaline Phosphatase 55 U/L (39-117); Anion Gap 11 (12-20); Aspartate Amino Transferase 30 U/L (5-37); Bilirubin Direct 0.2 mg/dL (0.0-0.5); Bilirubin Total 0.5 mg/dL (0.0-1.0); Blood Urea Nitrogen 22 mg/dL (9-16); Calcium 8.2 mg/dL (8.4-10.2); Carbon Dioxide 31 mmol/L (22-29); Chloride 106 mmol/L (96-108); Estimated Glomerular Filt Rate > 60; Glucose Random 102 mg/dL (60-115); Potassium 3.9 mmol/L (3.3-5.1); Sodium 144 mmol/L (135-145); Total Protein 5.6 g/dL (6.5-8.0)
[2020-04-20 07:14] LABS: Glucose, Whole Blood 92 mg/dL (60-115)
[2020-04-20 07:30] VITALS: BP 119/67; PULSE 55; RESP 18; TEMP 36.4; O2SAT 97
[2020-04-20 07:55] LABS: Glucose, Whole Blood 317 mg/dL (60-115)
[2020-04-20] MEDS: dexAMETHasone sod phosphate 4 MG/ML VIAL 6 MG IVPUSH (08:25)
[2020-04-20] MEDS: Insulin Glargine,Hum.rec.anlog 100 UNIT/ML 10 ML VIAL 25 UNIT SUBCUT ×2 (10:32→21:57)
[2020-04-20 10:57] LABS: Glucose, Whole Blood 295 mg/dL (60-115)
--- NOTE | 2020-04-20 11:17 | MHC.CM.PN ---
Patient is still requiring O2 at 4 liters via NC, IV Dexamethasone and IV Remdesivir for COVID+ on 04/17. Discharge plan is home no services, patient is independent. Patient will set up own transport home. CM will continue to follow patient for discharge needs.
[2020-04-20 11:20] VITALS: BP 124/62; PULSE 62; RESP 18; TEMP 36.7; O2SAT 97
[2020-04-20] MEDS: Insulin Lispro 100 UNIT/ML 3 ML VIAL SUBCUT ×3 (11:52→21:57)
[2020-04-20] MEDS: Remdesivir 100 MG in 0.9 % Sodium Chloride 230 ML 115 MG IV (11:52)
--- NOTE | 2020-04-20 13:17 | P.PNIM_ITS ---
Subjective Subjective Date of Service: 04/20/20 Interval History: Feeling better Cardiovascular Cardiovascular: Reports no additional cardiovascular complaints Gastrointestinal Gastrointestinal: Reports no additional gastrointestinal complaints Physical Exam Vital Signs: Vital Signs: Last Vital Signs Temp 98.0 F 04/20/20 11:20 Pulse 62 04/20/20 11:20 Resp 18 04/20/20 11:20 BP 124/62 04/20/20 11:20 Pulse Ox 97 04/20/20 11:20 Body Mass Index 27.8 General: AO X 3, no acute distress Resp: CTA bilateral CVS: S1,S2,RRR GI: soft, non tender, non distended Neuro: motor grossly intact Psych: appropriate affect Objective Data Current Medications Generic Name Dose Route Start Last Admin Trade Name Freq PRN Reason Stop Dose Admin Acetaminophen 650 mg 04/17/20 19:08 Acetaminophen 325 Mg Tablet PO Q6H PRN Pain, Mild (Pain Scale 1-3) Albuterol Sulfate 2 puff 04/17/20 19:08 Albuterol Sulfate 90 Mcg 8 Gm Inhaler INHALE Q4H PRN Shortness of Breath Dexamethasone Sodium Phosphate 6 mg 04/18/20 09:00 04/20/20 08:25 Dexamethasone Sod Phosphate 4 Mg/Ml Vial IVPUSH 6 mg DAILY MARJORIE Administration Docusate Sodium 100 mg 04/17/20 19:08 Docusate Sodium 100 Mg Capsule PO DAILY PRN Constipation Donepezil HCl 10 mg 04/17/20 21:00 04/19/20 21:25 Donepezil Hcl 10 Mg Tablet PO 10 mg BEDTIME MARJORIE Administration Enoxaparin Sodium 40 mg 04/17/20 22:00 04/19/20 21:25 Enoxaparin Sodium 40 Mg/0.4 Ml Syringe SUBCUT 40 mg Q24H MARJORIE Administration Remdesivir 100 mg/ Sodium 230 mls @ 115 mls/hr 04/19/20 12:00 04/20/20 11:52 Chloride IV 04/22/20 13:59 115 mls/hr Q24H MARJORIE Administration Insulin Glargine 25 unit 04/17/20 21:00 04/20/20 10:32 Insulin Glargine,Hum.Rec.Anlog 100 Unit/Ml 10 Ml Vial SUBCUT 25 unit BID MARJORIE Administration Insulin Human Lispro 0 unit 04/17/20 21:00 04/20/20 11:52 Insulin Lispro 100 Unit/Ml 3 Ml Vial SUBCUT 6 unit QIDACHS [facility] Administration Protocol Ondansetron HCl 4 mg 04/17/20 19:08 Ondansetron Hcl 4 Mg/2 Ml Vial IVPUSH Q8H PRN Nausea and Vomiting Pharmacy Consult 1 each 04/17/20 18:11 Consult Rx Perform Med Rec MISCELLANE ONCE PRN Consult order Sodium Chloride 3 ml 04/18/20 00:00 04/20/20 08:26 0.9 % Sodium Chloride Flush 3 Ml Syringe IVFLUSH 3 ml QSHIFT [facility] Administration Labs CBC & Chem 7: 04/18/20 06:57 04/20/20 05:45 Microbiology Microbiology Results: Microbiology 04/17/20 14:58 Blood - Venous Blood Culture - Preliminary No growth after 48 hours. 04/17/20 14:00 Blood - Venous Blood Culture - Preliminary No growth after 48 hours. Assessment and Plan (1) COVID-19: Problem details: He has COVID last week He has oxygen requirements He has no opportunistic infection Status: Acute (2) Respiratory failure with hypoxia: Status: Acute Assessment and Plan: 74M presented with fatigue and shortness of breath Acute hypoxic respiratory failure secondary to COVID pneumonia Continue remdesivir day 3 of 5 Decadron day 3 of 10 dementia Continue Aricept Diabetes Insulin
[2020-04-20 15:28] VITALS: BP 144/87; PULSE 60; RESP 20; TEMP 36.6; O2SAT 96
[2020-04-20 16:52] LABS: Glucose, Whole Blood 449 mg/dL (60-115)
[2020-04-20 16:52] LABS: Glucose, Whole Blood 521 mg/dL (60-115)
[2020-04-20] MEDS: Insulin Lispro 100 UNIT/ML 3 ML VIAL 10 UNIT SUBCUT (17:05)
[2020-04-20 19:07] VITALS: BP 128/62; PULSE 58; RESP 18; TEMP 36.6; O2SAT 95
[2020-04-20 20:44] LABS: Glucose, Whole Blood 307 mg/dL (60-115)
[2020-04-20] MEDS: Enoxaparin Sodium 40 MG/0.4 ML SYRINGE SUBCUT (21:57)
[2020-04-20] MEDS: Donepezil HCl 10 MG TABLET PO (21:57)
[2020-04-21] VITALS (7 sets, daily range): BP systolic 114–141; BP diastolic 55–89; PULSE 54–69; RESP 18; TEMP 36.2–36.8; O2SAT 90–95
[2020-04-21 08:29] LABS: Glucose, Whole Blood 55 mg/dL (60-115)
[2020-04-21] MEDS: 0.9 % Sodium Chloride Flush 3 ML SYRINGE IVFLUSH ×3 (08:41→21:16)
[2020-04-21] MEDS: dexAMETHasone sod phosphate 4 MG/ML VIAL 6 MG IVPUSH (08:42)
[2020-04-21 08:50] LABS: Glucose, Whole Blood 72 mg/dL (60-115)
[2020-04-21] MEDS: Insulin Glargine,Hum.rec.anlog 100 UNIT/ML 10 ML VIAL 25 UNIT SUBCUT ×2 (09:31→21:15)
[2020-04-21 11:39] LABS: Glucose, Whole Blood 275 mg/dL (60-115)
[2020-04-21] MEDS: Insulin Lispro 100 UNIT/ML 3 ML VIAL SUBCUT ×4 (11:48→23:47)
--- NOTE | 2020-04-21 12:20 | HO.PM.IMPN ---
Subjective Subjective Date of Service: 04/21/20 Interval History: feeling well Cardiovascular Cardiovascular: Reports no additional cardiovascular complaints Gastrointestinal Gastrointestinal: Reports no additional gastrointestinal complaints Physical Exam Vital Signs: Vital Signs: Last Vital Signs Temp 97.3 F 04/21/20 08:00 Pulse 58 04/21/20 08:00 Resp 18 04/21/20 08:00 BP 141/89 H 04/21/20 08:00 Pulse Ox 91 L 04/21/20 08:00 Body Mass Index 27.8 General: AO X 3, no acute distress Resp: CTA bilateral CVS: S1,S2,RRR GI: soft, non tender, non distended Neuro: motor grossly intact Psych: appropriate affect Objective Data Current Medications Generic Name Dose Route Start Last Admin Trade Name Freq PRN Reason Stop Dose Admin Acetaminophen 650 mg 04/17/20 19:08 Acetaminophen 325 Mg Tablet PO Q6H PRN Pain, Mild (Pain Scale 1-3) Albuterol Sulfate 2 puff 04/17/20 19:08 Albuterol Sulfate 90 Mcg 8 Gm Inhaler INHALE Q4H PRN Shortness of Breath Dexamethasone Sodium Phosphate 6 mg 04/18/20 09:00 04/21/20 08:42 Dexamethasone Sod Phosphate 4 Mg/Ml Vial IVPUSH 6 mg DAILY MARJORIE Administration Docusate Sodium 100 mg 04/17/20 19:08 Docusate Sodium 100 Mg Capsule PO DAILY PRN Constipation Donepezil HCl 10 mg 04/17/20 21:00 04/20/20 21:57 Donepezil Hcl 10 Mg Tablet PO 10 mg BEDTIME MARJORIE Administration Enoxaparin Sodium 40 mg 04/17/20 22:00 04/20/20 21:57 Enoxaparin Sodium 40 Mg/0.4 Ml Syringe SUBCUT 40 mg Q24H MARJORIE Administration Remdesivir 100 mg/ Sodium 230 mls @ 115 mls/hr 04/19/20 12:00 04/20/20 14:47 Chloride IV 04/22/20 13:59 Infused Q24H MARJORIE Infusion Insulin Glargine 25 unit 04/17/20 21:00 04/21/20 09:31 Insulin Glargine,Hum.Rec.Anlog 100 Unit/Ml 10 Ml Vial SUBCUT 25 unit BID MARJORIE Administration Insulin Human Lispro 0 unit 04/17/20 21:00 04/21/20 11:48 Insulin Lispro 100 Unit/Ml 3 Ml Vial SUBCUT 6 unit QIDACHS [facility] Administration Protocol Ondansetron HCl 4 mg 04/17/20 19:08 Ondansetron Hcl 4 Mg/2 Ml Vial IVPUSH Q8H PRN Nausea and Vomiting Pharmacy Consult 1 each 04/17/20 18:11 Consult Rx Perform Med Rec MISCELLANE ONCE PRN Consult order Sodium Chloride 3 ml 04/18/20 00:00 04/21/20 08:41 0.9 % Sodium Chloride Flush 3 Ml Syringe IVFLUSH 3 ml QSHIFT [facility] Administration Labs CBC & Chem 7: 04/18/20 06:57 04/20/20 05:45 Microbiology Microbiology Results: Microbiology 04/17/20 14:58 Blood - Venous Blood Culture - Preliminary No growth after 48 hours. 04/17/20 14:00 Blood - Venous Blood Culture - Preliminary No growth after 48 hours. Assessment and Plan (1) COVID-19: Status: Acute (2) Respiratory failure with hypoxia: Status: Acute Assessment and Plan: 74M presented with fatigue and shortness of breath Acute hypoxic respiratory failure secondary to COVID pneumonia Continue remdesivir day 4 of 5 Decadron day 4 dementia Continue Aricept Diabetes Insulin
[2020-04-21] MEDS: Remdesivir 100 MG in 0.9 % Sodium Chloride 230 ML 115 MG IV (12:22)
[2020-04-21 16:31] LABS: Glucose, Whole Blood 301 mg/dL (60-115)
[2020-04-21 20:31] LABS: Glucose, Whole Blood 419 mg/dL (60-115)
[2020-04-21] MEDS: Donepezil HCl 10 MG TABLET PO (21:15)
[2020-04-21] MEDS: Enoxaparin Sodium 40 MG/0.4 ML SYRINGE SUBCUT (21:15)
[2020-04-21 23:33] LABS: Glucose, Whole Blood 299 mg/dL (60-115)
[2020-04-22 04:00] VITALS: BP 138/72; PULSE 57; RESP 18; TEMP 36.4; O2SAT 94
[2020-04-22 06:50] LABS: MANUAL DIFF FLAG NO
[2020-04-22 07:09] LABS: Eosinophils Percent Auto 0.5 % (0-4); Hematocrit 40.9 % (42-52); Hemoglobin 13.5 g/dl (14.0-18.0); Imm Gran Abs Auto 0.03 X10*3/uL (0.00-0.03); Imm Gran Pct Auto 0.4 % (0.0-0.4); Lymphocytes Absolute Auto 1.7 X10*3/uL (1.2-4.9); Lymphocytes Percent Auto 21.5 % (20-40); Mean Corpuscular Hemoglobin 31.2 pg (27.0-33.0); Mean Corpuscular Volume 94.5 fL (80-98); Monocytes Absolute Auto 0.8 X10*3/uL (0.1-1.2); Monocytes Percent Auto 10.2 % (2-11); Neutrophils Absolute Auto 5.3 X10*3/uL (2.0-8.3); Neutrophils Percent Auto 67.4 % (45-73); Platelet Count 289 X10*3/uL (160-400); Red Blood Count 4.33 X10*6/uL (4.60-5.80); Red Cell Distribution Width 11.5 % (11.0-16.0); White Blood Count 7.8 X10*3/uL (4.8-10.8)
[2020-04-22 07:23] VITALS: BP 149/75; PULSE 62; RESP 18; TEMP 36.1; O2SAT 93
[2020-04-22 07:27] LABS: Glucose, Whole Blood 43 mg/dL (60-115)
[2020-04-22] MEDS: 0.9 % Sodium Chloride Flush 3 ML SYRINGE IVFLUSH ×3 (07:36→20:48)
[2020-04-22] MEDS: dexAMETHasone sod phosphate 4 MG/ML VIAL 6 MG IVPUSH (07:37)
[2020-04-22 07:43] LABS: Anion Gap 12 (12-20); Blood Urea Nitrogen 18 mg/dL (9-16); Calcium 7.9 mg/dL (8.4-10.2); Carbon Dioxide 28 mmol/L (22-29); Chloride 106 mmol/L (96-108); Creatinine Clr Calc Pharmacy 81.4; Estimated Glomerular Filt Rate > 60; Glucose Fasting 55 mg/dL (60-99); Potassium 3.7 mmol/L (3.3-5.1); Sodium 142 mmol/L (135-145)
[2020-04-22 07:44] LABS: Glucose, Whole Blood 78 mg/dL (60-115)
[2020-04-22 09:25] VITALS: O2SAT 86
[2020-04-22] MEDS: Insulin Glargine,Hum.rec.anlog 100 UNIT/ML 10 ML VIAL 25 UNIT SUBCUT (09:38)
[2020-04-22 09:49] LABS: Glucose, Whole Blood 303 mg/dL (60-115)
--- NOTE | 2020-04-22 10:47 | PC.NURSE ---
Addendum entered by Iwona Garcia RN 04/22/20 18:11: DINNER POC 396, NOTIFIED. 10 UNITS OF SLIDING SCALE INSULIN ADMINISTERED PER MD. WILL CONTINUE TO MONITOR. PT ATE 100% OF ALL THREE MEALS. Original Note: MORNING POC 43, JUICE AND BREAKFAST GIVEN. REPEAT POC 77. MD NOTIFIED. LANTUS ORDERS CHANGED PER MD, GIVE 0900 DOSE OF LANTUS 25 UNITS AND D/C BEDTIME LANTUS. POC CHECKED PRIOR TO LANTUS DOSE. WILL CONTINUE TO MONITOR. 02 TRIAL TO ROOM AIR TRIED AT 0925. PT DESAT TO 86% ON ROOM AIR. MD NOTIFIED. 3L NC REAPPLIED PER MD. WILL CONTINUE TO MONITOR.
[2020-04-22 11:15] LABS: Glucose, Whole Blood 336 mg/dL (60-115)
[2020-04-22] MEDS: Insulin Lispro 100 UNIT/ML 3 ML VIAL SUBCUT ×3 (11:31→20:48)
[2020-04-22 11:40] VITALS: BP 132/70; PULSE 64; RESP 18; TEMP 36.4; O2SAT 95
[2020-04-22] MEDS: Remdesivir 100 MG in 0.9 % Sodium Chloride 230 ML 115 MG IV (11:53)
--- NOTE | 2020-04-22 12:19 | HO.PM.IMPN ---
Subjective Subjective Date of Service: 04/22/20 Interval History: feels well wants to go home Cardiovascular Cardiovascular: Reports no additional cardiovascular complaints Respiratory Respiratory: Reports no additional respiratory complaints Physical Exam Vital Signs: Vital Signs: Last Vital Signs Temp 97.6 F 04/22/20 11:40 Pulse 64 04/22/20 11:40 Resp 18 04/22/20 11:40 BP 132/70 04/22/20 11:40 Pulse Ox 95 04/22/20 11:40 Body Mass Index 27.8 General: AO X 3, no acute distress Resp: CTA bilateral CVS: S1,S2,RRR GI: soft, non tender, non distended Neuro: motor grossly intact Psych: appropriate affect Objective Data Current Medications Generic Name Dose Route Start Last Admin Trade Name Freq PRN Reason Stop Dose Admin Acetaminophen 650 mg 04/17/20 19:08 Acetaminophen 325 Mg Tablet PO Q6H PRN Pain, Mild (Pain Scale 1-3) Albuterol Sulfate 2 puff 04/17/20 19:08 Albuterol Sulfate 90 Mcg 8 Gm Inhaler INHALE Q4H PRN Shortness of Breath Dexamethasone Sodium Phosphate 6 mg 04/18/20 09:00 04/22/20 07:37 Dexamethasone Sod Phosphate 4 Mg/Ml Vial IVPUSH 6 mg DAILY MARJORIE Administration Docusate Sodium 100 mg 04/17/20 19:08 Docusate Sodium 100 Mg Capsule PO DAILY PRN Constipation Donepezil HCl 10 mg 04/17/20 21:00 04/21/20 21:15 Donepezil Hcl 10 Mg Tablet PO 10 mg BEDTIME MARJORIE Administration Enoxaparin Sodium 40 mg 04/17/20 22:00 04/21/20 21:15 Enoxaparin Sodium 40 Mg/0.4 Ml Syringe SUBCUT 40 mg Q24H MARJORIE Administration Remdesivir 100 mg/ Sodium 230 mls @ 115 mls/hr 04/19/20 12:00 04/22/20 11:53 Chloride IV 04/22/20 13:59 115 mls/hr Q24H MARJOIRE Administration Insulin Glargine 25 unit 04/22/20 09:00 04/22/20 09:38 Insulin Glargine,Hum.Rec.Anlog 100 Unit/Ml 10 Ml Vial SUBCUT 25 unit DAILY MARJORIE Administration Insulin Human Lispro 0 unit 04/17/20 21:00 04/22/20 11:31 Insulin Lispro 100 Unit/Ml 3 Ml Vial SUBCUT 8 unit QIDACHS [facility] Administration Protocol Ondansetron HCl 4 mg 04/17/20 19:08 Ondansetron Hcl 4 Mg/2 Ml Vial IVPUSH Q8H PRN Nausea and Vomiting Pharmacy Consult 1 each 04/17/20 18:11 Consult Rx Perform Med Rec MISCELLANE ONCE PRN Consult order Sodium Chloride 3 ml 04/18/20 00:00 04/22/20 07:36 0.9 % Sodium Chloride Flush 3 Ml Syringe IVFLUSH 3 ml QSHIFT [facility] Administration Labs CBC & Chem 7: 04/22/20 05:54 04/22/20 05:54 Microbiology Microbiology Results: Microbiology 04/17/20 14:58 Blood - Venous Blood Culture - Preliminary No growth after 48 hours. 04/17/20 14:00 Blood - Venous Blood Culture - Preliminary No growth after 48 hours. Assessment and Plan (1) COVID-19: Status: Acute (2) Respiratory failure with hypoxia: Status: Acute Assessment and Plan: 74M presented with fatigue and shortness of breath Acute hypoxic respiratory failure secondary to COVID pneumonia Continue remdesivir day 5 of 5 Decadron day 5 of 10 still hypoxic on room air, though relatively asymptomatic, would potentially send home on o2 in the next 24-48hrs if stable dementia Continue Aricept Diabetes with hyper and hypoglycemia Insulin, dc evening lantus
[2020-04-22 14:49] VITALS: BP 134/78; PULSE 72; RESP 18; TEMP 36.8; O2SAT 97
[2020-04-22 16:16] LABS: Glucose, Whole Blood 396 mg/dL (60-115)
[2020-04-22 19:25] VITALS: BP 148/71; PULSE 80; RESP 18; TEMP 36.5; O2SAT 92
[2020-04-22 19:57] LABS: Glucose, Whole Blood 465 mg/dL (60-115)
[2020-04-22] MEDS: Donepezil HCl 10 MG TABLET PO (20:47)
[2020-04-22] MEDS: Enoxaparin Sodium 40 MG/0.4 ML SYRINGE SUBCUT (20:48)
[2020-04-23] VITALS: BP 140/66; PULSE 61; RESP 20; TEMP 36.9; O2SAT 90
[2020-04-23 04:00] VITALS: BP 117/59; PULSE 59; RESP 20; TEMP 37; O2SAT 93
[2020-04-23 07:53] VITALS: BP 146/79; PULSE 62; RESP 20; TEMP 36.7; O2SAT 94
[2020-04-23 08:55] LABS: Glucose, Whole Blood 76 mg/dL (60-115)
[2020-04-23] MEDS: Insulin Glargine,Hum.rec.anlog 100 UNIT/ML 10 ML VIAL 25 UNIT SUBCUT (09:56)
[2020-04-23] MEDS: 0.9 % Sodium Chloride Flush 3 ML SYRINGE IVFLUSH ×3 (09:56→22:50)
[2020-04-23] MEDS: dexAMETHasone sod phosphate 4 MG/ML VIAL 6 MG IVPUSH (09:56)
[2020-04-23 10:13] LABS: Glucose, Whole Blood 269 mg/dL (60-115)
--- NOTE | 2020-04-23 11:30 | PC.NURSE ---
Pt POC 365, Dr. Roberts made aware, advised to follow normal sliding scale.
[2020-04-23 11:34] LABS: Glucose, Whole Blood 365 mg/dL (60-115)
[2020-04-23] MEDS: Insulin Lispro 100 UNIT/ML 3 ML VIAL SUBCUT ×3 (11:36→22:49)
[2020-04-23 12:00] VITALS: BP 121/77; PULSE 95; RESP 20; TEMP 36.9; O2SAT 93
--- NOTE | 2020-04-23 12:09 | HO.PM.IMPN ---
Subjective Subjective Date of Service: 04/23/20 Interval History: sob Cardiovascular Cardiovascular: Reports no additional cardiovascular complaints Respiratory Respiratory: Reports no additional respiratory complaints Physical Exam Vital Signs: Vital Signs: Last Vital Signs Temp 98.0 F 04/23/20 07:53 Pulse 62 04/23/20 07:53 Resp 20 04/23/20 07:53 BP 146/79 H 04/23/20 07:53 Pulse Ox 94 04/23/20 07:53 Body Mass Index 27.8 General: AO X 3, no acute distress Resp: CTA bilateral CVS: S1,S2,RRR GI: soft, non tender, non distended Neuro: motor grossly intact Psych: appropriate affect Objective Data Current Medications Generic Name Dose Route Start Last Admin Trade Name Freq PRN Reason Stop Dose Admin Acetaminophen 650 mg 04/17/20 19:08 Acetaminophen 325 Mg Tablet PO Q6H PRN Pain, Mild (Pain Scale 1-3) Albuterol Sulfate 2 puff 04/17/20 19:08 Albuterol Sulfate 90 Mcg 8 Gm Inhaler INHALE Q4H PRN Shortness of Breath Dexamethasone Sodium Phosphate 6 mg 04/18/20 09:00 04/23/20 09:56 Dexamethasone Sod Phosphate 4 Mg/Ml Vial IVPUSH 6 mg DAILY MARJORIE Administration Docusate Sodium 100 mg 04/17/20 19:08 Docusate Sodium 100 Mg Capsule PO DAILY PRN Constipation Donepezil HCl 10 mg 04/17/20 21:00 04/22/20 20:47 Donepezil Hcl 10 Mg Tablet PO 10 mg BEDTIME MARJORIE Administration Enoxaparin Sodium 40 mg 04/17/20 22:00 04/22/20 20:48 Enoxaparin Sodium 40 Mg/0.4 Ml Syringe SUBCUT 40 mg Q24H MARJORIE Administration Insulin Glargine 25 unit 04/22/20 09:00 04/23/20 09:56 Insulin Glargine,Hum.Rec.Anlog 100 Unit/Ml 10 Ml Vial SUBCUT 25 unit DAILY MARJORIE Administration Insulin Human Lispro 0 unit 04/17/20 21:00 04/23/20 11:36 Insulin Lispro 100 Unit/Ml 3 Ml Vial SUBCUT 10 unit QIDACHS [facility] Administration Protocol Ondansetron HCl 4 mg 04/17/20 19:08 Ondansetron Hcl 4 Mg/2 Ml Vial IVPUSH Q8H PRN Nausea and Vomiting Pharmacy Consult 1 each 04/17/20 18:11 Consult Rx Perform Med Rec MISCELLANE ONCE PRN Consult order Sodium Chloride 3 ml 04/18/20 00:00 04/23/20 09:56 0.9 % Sodium Chloride Flush 3 Ml Syringe IVFLUSH 3 ml QSHIFT MARJORIE Administration Labs CBC & Chem 7: 04/22/20 05:54 04/22/20 05:54 Microbiology Microbiology Results: Microbiology 04/17/20 14:58 Blood - Venous Blood Culture - Final No growth after 5 days. 04/17/20 14:00 Blood - Venous Blood Culture - Final No growth after 5 days. Assessment and Plan (1) COVID-19: Status: Acute (2) Respiratory failure with hypoxia: Status: Acute Assessment and Plan: 74M presented with fatigue and shortness of breath Acute hypoxic respiratory failure secondary to COVID pneumonia Completed remdesivir Decadron day 6 of 10 still hypoxic on room air, though relatively asymptomatic, concern about patient managing home o2 though dementia Continue Aricept Diabetes with hyper and hypoglycemia Insulin, dced evening lantus
[2020-04-23 15:41] VITALS: BP 133/78; PULSE 73; RESP 18; TEMP 36.5; O2SAT 94
[2020-04-23 16:22] LABS: Glucose, Whole Blood 480 mg/dL (60-115)
[2020-04-23 19:45] VITALS: BP 140/92; PULSE 69; RESP 18; TEMP 36.6; O2SAT 94
[2020-04-23 19:59] LABS: Glucose, Whole Blood 440 mg/dL (60-115)
[2020-04-23] MEDS: Donepezil HCl 10 MG TABLET PO (22:49)
[2020-04-23] MEDS: Enoxaparin Sodium 40 MG/0.4 ML SYRINGE SUBCUT (22:49)
[2020-04-24] VITALS: BP 145/75; PULSE 61; RESP 18; TEMP 36.5; O2SAT 94
[2020-04-24 04:00] VITALS: BP 155/82; PULSE 62; RESP 18; TEMP 36.9; O2SAT 91
[2020-04-24 08:00] VITALS: BP 141/80; PULSE 62; RESP 18; TEMP 36.3; O2SAT 92
[2020-04-24 08:15] LABS: Glucose, Whole Blood 167 mg/dL (60-115)
[2020-04-24] MEDS: 0.9 % Sodium Chloride Flush 3 ML SYRINGE IVFLUSH (09:28)
[2020-04-24] MEDS: Insulin Lispro 100 UNIT/ML 3 ML VIAL SUBCUT ×2 (09:28→12:14)
[2020-04-24] MEDS: dexAMETHasone sod phosphate 4 MG/ML VIAL 6 MG IVPUSH (09:28)
[2020-04-24] MEDS: Insulin Glargine,Hum.rec.anlog 100 UNIT/ML 10 ML VIAL 25 UNIT SUBCUT (09:29)
--- NOTE | 2020-04-24 11:16 | MHC.CM.PN ---
Addendum entered by Brigette Morse 04/24/20 11:40: DAYSI informed pt would like to leave at 1400 hours. DAYSI contacted pts friend Naomi who reported she would arrange pts ride for that time. DAYSI explained procedure for picking up pts. Naomi asks that CM ensure pts new prescriptions are sent to [facility] on [address] he is not going back to [place] where his previous pharmacy was located. DAYSI checked pts DC and confirmed his meds were sent to correct pharmacy. Naomi will make arrangements for pt to be picked up as well as his prescriptions Original Note: DAYSI attempted to contact pt on his cell phone ([phone]) however, his friend Naomi, who is listed as his primary contact, answered. DAYSI informed her of pts DC and she indicated she was aware. She reports the pt will be going to stay with one of their friends when he discharges. She reports because he is covid +, he is not going to return to her home at this time. Naomi reports the pt will also be picked up by their friend who will bring pts coat and boots. Naomi asks that she be contacted when the pt is ready to leave so she can arrange transportation.
--- NOTE | 2020-04-24 12:20 | P.DS_ITS ---
DS: Providers Provider Date of Service: 04/24/20 Date of admission: 04/17/20 18:17 Primary care physician: Unknown Physician Consults: 04/17/20 19:08 Consult to Infectious Diseases Routine Consulting Provider: Parisa Coombs Reason for consultation: covid Has provider been notified: No DS: Diagnosis Discharge Diagnosis (1) COVID-19: Status: Acute (2) Respiratory failure with hypoxia: Status: Acute DS: Medications Discharge Medications Home Medications: Home Medications Medication Instructions Recorded Confirmed Lantus Solostar U-100 Insulin 40 unit SUBCUT BID 04/17/20 04/17/20 metformin 500 mg PO BID 04/17/20 04/17/20 Previous Rx's Medication Instructions Recorded donepezil [Aricept] 10 mg PO BEDTIME #30 tab 04/11/20 dexamethasone [Decadron] 6 mg PO DAILY #4 tab 04/24/20 DS: Summary Hospital Course Hospital Course: patient was admitted for acute hypoxic respiratory failure due to covid, was given steroids and remdisvir. now feeling much better and tolerating room air. will discharge home on 4 more days decadron. Time Spent with Patient Time attestation: Total time spent providing and/or coordinating discharge services: Discharge coordination time: Greater than 30 minutes Physical Exam Vital Signs: Vital Signs: Last Vital Signs Temp 97.3 F 04/24/20 08:00 Pulse 62 04/24/20 08:00 Resp 18 04/24/20 08:00 BP 141/80 H 04/24/20 08:00 Pulse Ox 92 04/24/20 08:00 Body Mass Index 27.8 General: AO X 3, no acute distress Resp: CTA bilateral CVS: S1,S2,RRR GI: soft, non tender, non distended Neuro: motor grossly intact Psych: appropriate affect DS: Data Data Completed and Pending Labs on day of discharge: Laboratory Tests 04/17/20 04/17/20 04/17/20 14:00 14:00 14:00 WBC 4.8 RBC 4.92 Hgb 15.4 Hct 48.5 MCV 98.6 H MCH 31.3 MCHC 31.8 RDW 12.0 Plt Count 221 D MPV 10.7 Immature Gran % (Auto) Cancelled Neut % (Auto) Cancelled Lymph % (Auto) Cancelled [place] % (Auto) Cancelled Eos % (Auto) Cancelled Baso % (Auto) Cancelled Lymph # (Auto) Cancelled [place] # (Auto) Cancelled Eos # (Auto) Cancelled Baso # (Auto) Cancelled Abs Immat Gran (auto) Cancelled Absolute Neuts (auto) Cancelled Absolute Nucleated RBC 0.000 Nucleated RBC % (auto) 0.0 Neutrophils % (Manual) 83 H Band Neutrophils % 0 L Lymphocytes % (Manual) 9 L Atypical Lymphs % (Man) 1 Monocytes % (Manual) 7 Abs Neuts (Manual) 4.0 Lymphocytes # (Manual) 0.4 L Monocytes # (Manual) 0.3 Platelet Estimate NORMAL Large Platelets PRESENT Plt Morphology Comment NORMAL RBC Morphology NOTED Microcytosis 3+ [place] Cells 3+ PT 16.0 H INR 1.3 H APTT 56.7 H D D-Dimer 575 Sodium 144 Potassium 4.6 Chloride 103 Carbon Dioxide 27 Anion Gap 19 BUN 24 H D Creatinine 1.36 Estim Creat Clear Calc 46.7 Estimated GFR 52 POC Glucose Random Glucose 418 H* Fasting Glucose Lactic Acid Calcium 9.2 Ferritin Total Bilirubin 0.8 Direct Bilirubin AST 22 ALT 16 Alkaline Phosphatase 72 Lactate Dehydrogenase 264 Troponin I High Sens C-Reactive Protein 19.07 H Total Protein 7.4 Albumin 3.7 Procalcitonin Urine Color Urine Appearance Urine pH Ur Specific [place] Urine Protein Urine Glucose (UA) Urine Ketones Urine Blood Urine Nitrite Ur Leukocyte Esterase Urine RBC Urine WBC Ur Squamous Epith Cells Urine Bacteria Coronavirus (PCR) Influenza Type A (PCR) Influenza Type B (PCR) RSV RNA Qual (PCR) Blood Type Antibody Screen 04/17/20 04/17/20 04/17/20 14:00 14:00 14:00 WBC RBC Hgb Hct MCV MCH MCHC RDW Plt Count MPV Immature Gran % (Auto) Neut % (Auto) Lymph % (Auto) [place] % (Auto) Eos % (Auto) Baso % (Auto) Lymph # (Auto) [place] # (Auto) Eos # (Auto) Baso # (Auto) Abs Immat Gran (auto) Absolute Neuts (auto) Absolute Nucleated RBC Nucleated RBC % (auto) Neutrophils % (Manual) Band Neutrophils % Lymphocytes % (Manual) Atypical Lymphs % (Man) Monocytes % (Manual) Abs Neuts (Manual) Lymphocytes # (Manual) Monocytes # (Manual) Platelet Estimate Large Platelets Plt Morphology Comment RBC Morphology Microcytosis [place] Cells PT INR APTT D-Dimer Sodium Potassium Chloride Carbon Dioxide Anion Gap BUN Creatinine Estim Creat Clear Calc Estimated GFR POC Glucose Random Glucose Fasting Glucose Lactic Acid Calcium Ferritin 355 H Total Bilirubin Direct Bilirubin AST ALT Alkaline Phosphatase Lactate Dehydrogenase Troponin I High Sens 7.8 C-Reactive Protein Total Protein Albumin Procalcitonin 0.15 Urine Color Urine Appearance Urine pH Ur Specific [place] Urine Protein Urine Glucose (UA) Urine Ketones Urine Blood Urine Nitrite Ur Leukocyte Esterase Urine RBC Urine WBC Ur Squamous Epith Cells Urine Bacteria Coronavirus (PCR) Influenza Type A (PCR) Influenza Type B (PCR) RSV RNA Qual (PCR) Blood Type Antibody Screen 04/17/20 04/17/20 04/17/20 14:01 14:02 15:42 WBC RBC Hgb Hct MCV MCH MCHC RDW Plt Count MPV Immature Gran % (Auto) Neut % (Auto) Lymph % (Auto) [place] % (Auto) Eos % (Auto) Baso % (Auto) Lymph # (Auto) [place] # (Auto) Eos # (Auto) Baso # (Auto) Abs Immat Gran (auto) Absolute Neuts (auto) Absolute Nucleated RBC Nucleated RBC % (auto) Neutrophils % (Manual) Band Neutrophils % Lymphocytes % (Manual) Atypical Lymphs % (Man) Monocytes % (Manual) Abs Neuts (Manual) Lymphocytes # (Manual) Monocytes # (Manual) Platelet Estimate Large Platelets Plt Morphology Comment RBC Morphology Microcytosis [place] Cells PT INR APTT D-Dimer Sodium Potassium Chloride Carbon Dioxide Anion Gap BUN Creatinine Estim Creat Clear Calc Estimated GFR POC Glucose Random Glucose Fasting Glucose Lactic Acid 1.9 Calcium Ferritin Total Bilirubin Direct Bilirubin AST ALT Alkaline Phosphatase Lactate Dehydrogenase Troponin I High Sens C-Reactive Protein Total Protein Albumin Procalcitonin Urine Color YELLOW Urine Appearance CLEAR Urine pH 5.5 Ur Specific [place] 1.025 Urine Protein 1+ H Urine Glucose (UA) >=1000 H Urine Ketones 15 Urine Blood TRACE Urine Nitrite NEG Ur Leukocyte Esterase NEG Urine RBC 1-4 Urine WBC 0-2 Ur Squamous Ep[place] Cells 1+ Urine Bacteria NONE Coronavirus (PCR) POSITIVE A Influenza Type A (PCR) NEGATIVE Influenza Type B (PCR) NEGATIVE RSV RNA Qual (PCR) NEGATIVE Blood Type Antibody Screen 04/17/20 04/17/20 04/17/20 18:14 20:04 20:40 WBC RBC Hgb Hct MCV MCH MCHC RDW Plt Count MPV Immature Gran % (Auto) Neut % (Auto) Lymph % (Auto) [place] % (Auto) Eos % (Auto) Baso % (Auto) Lymph # (Auto) [place] # (Auto) Eos # (Auto) Baso # (Auto) Abs Immat Gran (auto) Absolute Neuts (auto) Absolute Nucleated RBC Nucleated RBC % (auto) Neutrophils % (Manual) Band Neutrophils % Lymphocytes % (Manual) Atypical Lymphs % (Man) Monocytes % (Manual) Abs Neuts (Manual) Lymphocytes # (Manual) Monocytes # (Manual) Platelet Estimate Large Platelets Plt Morphology Comment RBC Morphology Microcytosis [place] Cells PT INR APTT D-Dimer Sodium Potassium Chloride Carbon Dioxide Anion Gap BUN Creatinine Estim Creat Clear Calc Estimated GFR POC Glucose 317 H 390 H* 389 H* Random Glucose Fasting Glucose Lactic Acid Calcium Ferritin Total Bilirubin Direct Bilirubin AST ALT Alkaline Phosphatase Lactate Dehydrogenase Troponin I High Sens C-Reactive Protein Total Protein Albumin Procalcitonin Urine Color Urine Appearance Urine pH Ur Specific [place] Urine Protein Urine Glucose (UA) Urine Ketones Urine Blood Urine Nitrite Ur Leukocyte Esterase Urine RBC Urine WBC Ur Squamous Epith Cells Urine Bacteria Coronavirus (PCR) Influenza Type A (PCR) Influenza Type B (PCR) RSV RNA Qual (PCR) Blood Type Antibody Screen 04/17/20 04/18/20 04/18/20 22:30 06:57 06:57 WBC 4.0 L RBC 4.45 L Hgb 13.7 L Hct 43.7 MCV 98.2 H MCH 30.8 MCHC 31.4 RDW 11.9 Plt Count 232 MPV 10.9 Immature Gran % (Auto) Neut % (Auto) Lymph % (Auto) [place] % (Auto) Eos % (Auto) Baso % (Auto) Lymph # (Auto) [place] # (Auto) Eos # (Auto) Baso # (Auto) Abs Immat Gran (auto) Absolute Neuts (auto) Absolute Nucleated RBC 0.000 Nucleated RBC % (auto) 0.0 Neutrophils % (Manual) Band Neutrophils % Lymphocytes % (Manual) Atypical Lymphs % (Man) Monocytes % (Manual) Abs Neuts (Manual) Lymphocytes # (Manual) Monocytes # (Manual) Platelet Estimate Large Platelets Plt Morphology Comment RBC Morphology Microcytosis [place] Cells PT INR APTT D-Dimer Sodium 142 Potassium 5.0 Chloride 104 Carbon Dioxide 30 H Anion Gap 13 BUN 27 H Creatinine 1.16 Estim Creat Clear Calc 54.7 Estimated GFR > 60 POC Glucose 290 H Random Glucose 347 H Fasting Glucose Lactic Acid Calcium 8.6 D Ferritin Total Bilirubin Direct Bilirubin AST ALT Alkaline Phosphatase Lactate Dehydrogenase Troponin I High Sens C-Reactive Protein Total Protein Albumin Procalcitonin Urine Color Urine Appearance Urine pH Ur Specific [place] Urine Protein Urine Glucose (UA) Urine Ketones Urine Blood Urine Nitrite Ur Leukocyte Esterase Urine RBC Urine WBC Ur Squamous Epith Cells Urine Bacteria Coronavirus (PCR) Influenza Type A (PCR) Influenza Type B (PCR) RSV RNA Qual (PCR) Blood Type Antibody Screen 04/18/20 04/18/20 04/18/20 09:17 10:06 11:35 WBC RBC Hgb Hct MCV MCH MCHC RDW Plt Count MPV Immature Gran % (Auto) Neut % (Auto) Lymph % (Auto) [place] % (Auto) Eos % (Auto) Baso % (Auto) Lymph # (Auto) [place] # (Auto) Eos # (Auto) Baso # (Auto) Abs Immat Gran (auto) Absolute Neuts (auto) Absolute Nucleated RBC Nucleated RBC % (auto) Neutrophils % (Manual) Band Neutrophils % Lymphocytes % (Manual) Atypical Lymphs % (Man) Monocytes % (Manual) Abs Neuts (Manual) Lymphocytes # (Manual) Monocytes # (Manual) Platelet Estimate Large Platelets Plt Morphology Comment RBC Morphology Microcytosis [place] Cells PT INR APTT D-Dimer Sodium Potassium Chloride Carbon Dioxide Anion Gap BUN Creatinine Estim Creat Clear Calc Estimated GFR POC Glucose 299 H 288 H Random Glucose Fasting Glucose Lactic Acid Calcium Ferritin Total Bilirubin Direct Bilirubin AST ALT Alkaline Phosphatase Lactate Dehydrogenase Troponin I High Sens C-Reactive Protein Total Protein Albumin Procalcitonin Urine Color Urine Appearance Urine pH Ur Specific [place] Urine Protein Urine Glucose (UA) Urine Ketones Urine Blood Urine Nitrite Ur Leukocyte Esterase Urine RBC Urine WBC Ur Squamous Epith Cells Urine Bacteria Coronavirus (PCR) Influenza Type A (PCR) Influenza Type B (PCR) RSV RNA Qual (PCR) Blood Type O Positive Antibody Screen NEGATIVE 04/18/20 04/18/20 04/19/20 16:33 20:44 05:58 WBC RBC Hgb Hct MCV MCH MCHC RDW Plt Count MPV Immature Gran % (Auto) Neut % (Auto) Lymph % (Auto) [place] % (Auto) Eos % (Auto) Baso % (Auto) Lymph # (Auto) [place] # (Auto) Eos # (Auto) Baso # (Auto) Abs Immat Gran (auto) Absolute Neuts (auto) Absolute Nucleated RBC Nucleated RBC % (auto) Neutrophils % (Manual) Band Neutrophils % Lymphocytes % (Manual) Atypical Lymphs % (Man) Monocytes % (Manual) Abs Neuts (Manual) Lymphocytes # (Manual) Monocytes # (Manual) Platelet Estimate Large Platelets Plt Morphology Comment RBC Morphology Microcytosis [place] Cells PT INR APTT D-Dimer Sodium 145 Potassium 3.9 D Chloride 107 Carbon Dioxide 27 Anion Gap 15 BUN 29 H Creatinine 0.96 Estim Creat Clear Calc 66.2 Estimated GFR > 60 POC Glucose 365 H* 356 H* Random Glucose 107 D Fasting Glucose Lactic Acid Calcium 8.5 Ferritin Total Bilirubin 0.6 Direct Bilirubin 0.2 AST 61 H ALT 42 H Alkaline Phosphatase 61 Lactate Dehydrogenase Troponin I High Sens C-Reactive Protein Total Protein 6.1 L Albumin 3.0 L Procalcitonin Urine Color Urine Appearance Urine pH Ur Specific [place] Urine Protein Urine Glucose (UA) Urine Ketones Urine Blood Urine Nitrite Ur Leukocyte Esterase Urine RBC Urine WBC Ur Squamous Ep[place] Cells Urine Bacteria Coronavirus (PCR) Influenza Type A (PCR) Influenza Type B (PCR) RSV RNA Qual (PCR) Blood Type Antibody Screen 04/19/20 04/19/20 04/19/20 07:05 10:57 15:32 WBC RBC Hgb Hct MCV MCH MCHC RDW Plt Count MPV Immature Gran % (Auto) Neut % (Auto) Lymph % (Auto) [place] % (Auto) Eos % (Auto) Baso % (Auto) Lymph # (Auto) [place] # (Auto) Eos # (Auto) Baso # (Auto) Abs Immat Gran (auto) Absolute Neuts (auto) Absolute Nucleated RBC Nucleated RBC % (auto) Neutrophils % (Manual) Band Neutrophils % Lymphocytes % (Manual) Atypical Lymphs % (Man) Monocytes % (Manual) Abs Neuts (Manual) Lymphocytes # (Manual) Monocytes # (Manual) Platelet Estimate Large Platelets Plt Morphology Comment RBC Morphology Microcytosis [place] Cells PT INR APTT D-Dimer Sodium Potassium Chloride Carbon Dioxide Anion Gap BUN Creatinine Estim Creat Clear Calc Estimated GFR POC Glucose 117 H 266 H 339 H Random Glucose Fasting Glucose Lactic Acid Calcium Ferritin Total Bilirubin Direct Bilirubin AST ALT Alkaline Phosphatase Lactate Dehydrogenase Troponin I High Sens C-Reactive Protein Total Protein Albumin Procalcitonin Urine Color Urine Appearance Urine pH Ur Specific [place] Urine Protein Urine Glucose (UA) Urine Ketones Urine Blood Urine Nitrite Ur Leukocyte Esterase Urine RBC Urine WBC Ur Squamous Epith Cells Urine Bacteria Coronavirus (PCR) Influenza Type A (PCR) Influenza Type B (PCR) RSV RNA Qual (PCR) Blood Type Antibody Screen 04/19/20 04/20/20 04/20/20 19:20 05:45 07:08 WBC RBC Hgb Hct MCV MCH MCHC RDW Plt Count MPV Immature Gran % (Auto) Neut % (Auto) Lymph % (Auto) [place] % (Auto) Eos % (Auto) Baso % (Auto) Lymph # (Auto) [place] # (Auto) Eos # (Auto) Baso # (Auto) Abs Immat Gran (auto) Absolute Neuts (auto) Absolute Nucleated RBC Nucleated RBC % (auto) Neutrophils % (Manual) Band Neutrophils % Lymphocytes % (Manual) Atypical Lymphs % (Man) Monocytes % (Manual) Abs Neuts (Manual) Lymphocytes # (Manual) Monocytes # (Manual) Platelet Estimate Large Platelets Plt Morphology Comment RBC Morphology Microcytosis [place] Cells PT INR APTT D-Dimer Sodium 144 Potassium 3.9 Chloride 106 Carbon Dioxide 31 H Anion Gap 11 L BUN 22 H Creatinine 0.92 Estim Creat Clear Calc 69.0 Estimated GFR > 60 POC Glucose 377 H* 92 Random Glucose 102 Fasting Glucose Lactic Acid Calcium 8.2 L Ferritin Total Bilirubin 0.5 Direct Bilirubin 0.2 AST 30 D ALT 33 Alkaline Phosphatase 55 Lactate Dehydrogenase Troponin I High Sens C-Reactive Protein Total Protein 5.6 L Albumin 2.7 L Procalcitonin Urine Color Urine Appearance Urine pH Ur Specific [place] Urine Protein Urine Glucose (UA) Urine Ketones Urine Blood Urine Nitrite Ur Leukocyte Esterase Urine RBC Urine WBC Ur Squamous Epith Cells Urine Bacteria Coronavirus (PCR) Influenza Type A (PCR) Influenza Type B (PCR) RSV RNA Qual (PCR) Blood Type Antibody Screen 04/20/20 04/20/20 04/20/20 10:47 16:24 16:30 WBC RBC Hgb Hct MCV MCH MCHC RDW Plt Count MPV Immature Gran % (Auto) Neut % (Auto) Lymph % (Auto) [place] % (Auto) Eos % (Auto) Baso % (Auto) Lymph # (Auto) [place] # (Auto) Eos # (Auto) Baso # (Auto) Abs Immat Gran (auto) Absolute Neuts (auto) Absolute Nucleated RBC Nucleated RBC % (auto) Neutrophils % (Manual) Band Neutrophils % Lymphocytes % (Manual) Atypical Lymphs % (Man) Monocytes % (Manual) Abs Neuts (Manual) Lymphocytes # (Manual) Monocytes # (Manual) Platelet Estimate Large Platelets Plt Morphology Comment RBC Morphology Microcytosis [place] Cells PT INR APTT D-Dimer Sodium Potassium Chloride Carbon Dioxide Anion Gap BUN Creatinine Estim Creat Clear Calc Estimated GFR POC Glucose 295 H 521 H* 449 H* Random Glucose Fasting Glucose Lactic Acid Calcium Ferritin Total Bilirubin Direct Bilirubin AST ALT Alkaline Phosphatase Lactate Dehydrogenase Troponin I High Sens C-Reactive Protein Total Protein Albumin Procalcitonin Urine Color Urine Appearance Urine pH Ur Specific [place] Urine Protein Urine Glucose (UA) Urine Ketones Urine Blood Urine Nitrite Ur Leukocyte Esterase Urine RBC Urine WBC Ur [place]amous [place] Cells Urine Bacteria Coronavirus (PCR) Influenza Type A (PCR) Influenza Type B (PCR) RSV RNA Qual (PCR) Blood Type Antibody Screen 04/20/20 04/21/20 04/21/20 20:27 08:26 08:44 WBC RBC Hgb Hct MCV MCH MCHC RDW Plt Count MPV Immature Gran % (Auto) Neut % (Auto) Lymph % (Auto) [place] % (Auto) Eos % (Auto) Baso % (Auto) Lymph # (Auto) [place] # (Auto) Eos # (Auto) Baso # (Auto) Abs Immat Gran (auto) Absolute Neuts (auto) Absolute Nucleated RBC Nucleated RBC % (auto) Neutrophils % (Manual) Band Neutrophils % Lymphocytes % (Manual) Atypical Lymphs % (Man) Monocytes % (Manual) Abs Neuts (Manual) Lymphocytes # (Manual) Monocytes # (Manual) Platelet Estimate Large Platelets Plt Morphology Comment RBC Morphology Microcytosis [place] Cells PT INR APTT D-Dimer Sodium Potassium Chloride Carbon Dioxide Anion Gap BUN Creatinine Estim Creat Clear Calc Estimated GFR POC Glucose 307 H 55 L* 72 Random Glucose Fasting Glucose Lactic Acid Calcium Ferritin Total Bilirubin Direct Bilirubin AST ALT Alkaline Phosphatase Lactate Dehydrogenase Troponin I High Sens C-Reactive Protein Total Protein Albumin Procalcitonin Urine Color Urine Appearance Urine pH Ur Specific [place] Urine Protein Urine Glucose (UA) Urine Ketones Urine Blood Urine Nitrite Ur Leukocyte Esterase Urine RBC Urine WBC Ur Squamous Ep[place] Cells Urine Bacteria Coronavirus (PCR) Influenza Type A (PCR) Influenza Type B (PCR) RSV RNA Qual (PCR) Blood Type Antibody Screen 02/02/21 02/02/21 02/02/21 11:35 16:20 20:20 WBC RBC Hgb Hct MCV MCH MCHC RDW Plt Count MPV Immature Gran % (Auto) Neut % (Auto) Lymph % (Auto) [place] % (Auto) Eos % (Auto) Baso % (Auto) Lymph # (Auto) [place] # (Auto) Eos # (Auto) Baso # (Auto) Abs Immat Gran (auto) Absolute Neuts (auto) Absolute Nucleated RBC Nucleated RBC % (auto) Neutrophils % (Manual) Band Neutrophils % Lymphocytes % (Manual) Atypical Lymphs % (Man) Monocytes % (Manual) Abs Neuts (Manual) Lymphocytes # (Manual) Monocytes # (Manual) Platelet Estimate Large Platelets Plt Morphology Comment RBC Morphology Microcytosis [place] Cells PT INR APTT D-Dimer Sodium Potassium Chloride Carbon Dioxide Anion Gap BUN Creatinine Estim Creat Clear Calc Estimated GFR POC Glucose 275 H 301 H 419 H* Random Glucose Fasting Glucose Lactic Acid Calcium Ferritin Total Bilirubin Direct Bilirubin AST ALT Alkaline Phosphatase Lactate Dehydrogenase Troponin I High Sens C-Reactive Protein Total Protein Albumin Procalcitonin Urine Color Urine Appearance Urine pH Ur Specific [place] Urine Protein Urine Glucose (UA) Urine Ketones Urine Blood Urine Nitrite Ur Leukocyte Esterase Urine RBC Urine WBC Ur Squamous Epith Cells Urine Bacteria Coronavirus (PCR) Influenza Type A (PCR) Influenza Type B (PCR) RSV RNA Qual (PCR) Blood Type Antibody Screen 04/21/20 04/22/20 04/22/20 23:23 05:54 05:54 WBC 7.8 RBC 4.33 L Hgb 13.5 L Hct 40.9 L MCV 94.5 MCH 31.2 MCHC 33.0 RDW 11.5 Plt Count 289 MPV 11.0 Immature Gran % (Auto) 0.4 Neut % (Auto) 67.4 Lymph % (Auto) 21.5 [place] % (Auto) 10.2 Eos % (Auto) 0.5 Baso % (Auto) 0.0 Lymph # (Auto) 1.7 [place] # (Auto) 0.8 Eos # (Auto) 0.0 Baso # (Auto) 0.0 Abs Immat Gran (auto) 0.03 Absolute Neuts (auto) 5.3 Absolute Nucleated RBC 0.000 Nucleated RBC % (auto) 0.0 Neutrophils % (Manual) Band Neutrophils % Lymphocytes % (Manual) Atypical Lymphs % (Man) Monocytes % (Manual) Abs Neuts (Manual) Lymphocytes # (Manual) Monocytes # (Manual) Platelet Estimate Large Platelets Plt Morphology Comment RBC Morphology Microcytosis [place] Cells PT INR APTT D-Dimer Sodium 142 Potassium 3.7 Chloride 106 Carbon Dioxide 28 Anion Gap 12 BUN 18 H Creatinine 0.78 Estim Creat Clear Calc 81.4 Estimated GFR > 60 POC Glucose 299 H Random Glucose Fasting Glucose 55 L* Lactic Acid Calcium 7.9 L Ferritin Total Bilirubin Direct Bilirubin AST ALT Alkaline Phosphatase Lactate Dehydrogenase Troponin I High Sens C-Reactive Protein Total Protein Albumin Procalcitonin Urine Color Urine Appearance Urine pH Ur Specific [place] Urine Protein Urine Glucose (UA) Urine Ketones Urine Blood Urine Nitrite Ur Leukocyte Esterase Urine RBC Urine WBC Ur Squamous Epith Cells Urine Bacteria Coronavirus (PCR) Influenza Type A (PCR) Influenza Type B (PCR) RSV RNA Qual (PCR) Blood Type Antibody Screen 04/22/20 04/22/20 04/22/20 07:18 07:41 09:40 WBC RBC Hgb Hct MCV MCH MCHC RDW Plt Count MPV Immature Gran % (Auto) Neut % (Auto) Lymph % (Auto) [place] % (Auto) Eos % (Auto) Baso % (Auto) Lymph # (Auto) [place] # (Auto) Eos # (Auto) Baso # (Auto) Abs Immat Gran (auto) Absolute Neuts (auto) Absolute Nucleated RBC Nucleated RBC % (auto) Neutrophils % (Manual) Band Neutrophils % Lymphocytes % (Manual) Atypical Lymphs % (Man) Monocytes % (Manual) Abs Neuts (Manual) Lymphocytes # (Manual) Monocytes # (Manual) Platelet Estimate Large Platelets Plt Morphology Comment RBC Morphology Microcytosis [place] Cells PT INR APTT D-Dimer Sodium Potassium Chloride Carbon Dioxide Anion Gap BUN Creatinine Estim Creat Clear Calc Estimated GFR POC Glucose 43 L* 78 303 H Random Glucose Fasting Glucose Lactic Acid Calcium Ferritin Total Bilirubin Direct Bilirubin AST ALT Alkaline Phosphatase Lactate Dehydrogenase Troponin I High Sens C-Reactive Protein Total Protein Albumin Procalcitonin Urine Color Urine Appearance Urine pH Ur Specific [place] Urine Protein Urine Glucose (UA) Urine Ketones Urine Blood Urine Nitrite Ur Leukocyte Esterase Urine RBC Urine WBC Ur Squamous Epith Cells Urine Bacteria Coronavirus (PCR) Influenza Type A (PCR) Influenza Type B (PCR) RSV RNA Qual (PCR) Blood Type Antibody Screen 04/22/20 04/22/20 04/22/20 11:07 16:08 19:53 WBC RBC Hgb Hct MCV MCH MCHC RDW Plt Count MPV Immature Gran % (Auto) Neut % (Auto) Lymph % (Auto) [place] % (Auto) Eos % (Auto) Baso % (Auto) Lymph # (Auto) [place] # (Auto) Eos # (Auto) Baso # (Auto) Abs Immat Gran (auto) Absolute Neuts (auto) Absolute Nucleated RBC Nucleated RBC % (auto) Neutrophils % (Manual) Band Neutrophils % Lymphocytes % (Manual) Atypical Lymphs % (Man) Monocytes % (Manual) Abs Neuts (Manual) Lymphocytes # (Manual) Monocytes # (Manual) Platelet Estimate Large Platelets Plt Morphology Comment RBC Morphology Microcytosis [place] Cells PT INR APTT D-Dimer Sodium Potassium Chloride Carbon Dioxide Anion Gap BUN Creatinine Estim Creat Clear Calc Estimated GFR POC Glucose 336 H 396 H* 465 H* Random Glucose Fasting Glucose Lactic Acid Calcium Ferritin Total Bilirubin Direct Bilirubin AST ALT Alkaline Phosphatase Lactate Dehydrogenase Troponin I High Sens C-Reactive Protein Total Protein Albumin Procalcitonin Urine Color Urine Appearance Urine pH Ur Specific [place] Urine Protein Urine Glucose (UA) Urine Ketones Urine Blood Urine Nitrite Ur Leukocyte Esterase Urine RBC Urine WBC Ur Squamous Epith Cells Urine Bacteria Coronavirus (PCR) Influenza Type A (PCR) Influenza Type B (PCR) RSV RNA Qual (PCR) Blood Type Antibody Screen 04/23/20 04/23/20 04/23/20 07:51 09:59 11:19 WBC RBC Hgb Hct MCV MCH MCHC RDW Plt Count MPV Immature Gran % (Auto) Neut % (Auto) Lymph % (Auto) [place] % (Auto) Eos % (Auto) Baso % (Auto) Lymph # (Auto) [place] # (Auto) Eos # (Auto) Baso # (Auto) Abs Immat Gran (auto) Absolute Neuts (auto) Absolute Nucleated RBC Nucleated RBC % (auto) Neutrophils % (Manual) Band Neutrophils % Lymphocytes % (Manual) Atypical Lymphs % (Man) Monocytes % (Manual) Abs Neuts (Manual) Lymphocytes # (Manual) Monocytes # (Manual) Platelet Estimate Large Platelets Plt Morphology Comment RBC Morphology Microcytosis [place] Cells PT INR APTT D-Dimer Sodium Potassium Chloride Carbon Dioxide Anion Gap BUN Creatinine Estim Creat Clear Calc Estimated GFR POC Glucose 76 269 H 365 H* Random Glucose Fasting Glucose Lactic Acid Calcium Ferritin Total Bilirubin Direct Bilirubin AST ALT Alkaline Phosphatase Lactate Dehydrogenase Troponin I High Sens C-Reactive Protein Total Protein Albumin Procalcitonin Urine Color Urine Appearance Urine pH Ur Specific [place] Urine Protein Urine Glucose (UA) Urine Ketones Urine Blood Urine Nitrite Ur Leukocyte Esterase Urine RBC Urine WBC Ur Squamous Epith Cells Urine Bacteria Coronavirus (PCR) Influenza Type A (PCR) Influenza Type B (PCR) RSV RNA Qual (PCR) Blood Type Antibody Screen 04/23/20 04/23/20 04/24/20 15:44 19:47 07:46 WBC RBC Hgb Hct MCV MCH MCHC RDW Plt Count MPV Immature Gran % (Auto) Neut % (Auto) Lymph % (Auto) [place] % (Auto) Eos % (Auto) Baso % (Auto) Lymph # (Auto) [place] # (Auto) Eos # (Auto) Baso # (Auto) Abs Immat Gran (auto) Absolute Neuts (auto) Absolute Nucleated RBC Nucleated RBC % (auto) Neutrophils % (Manual) Band Neutrophils % Lymphocytes % (Manual) Atypical Lymphs % (Man) Monocytes % (Manual) Abs Neuts (Manual) Lymphocytes # (Manual) Monocytes # (Manual) Platelet Estimate Large Platelets Plt Morphology Comment RBC Morphology Microcytosis Rosemary Cells PT INR APTT D-Dimer Sodium Potassium Chloride Carbon Dioxide Anion Gap BUN Creatinine Estim Creat Clear Calc Estimated GFR POC Glucose 480 H* 440 H* 167 H Random Glucose Fasting Glucose Lactic Acid Calcium Ferritin Total Bilirubin Direct Bilirubin AST ALT Alkaline Phosphatase Lactate Dehydrogenase Troponin I High Sens C-Reactive Protein Total Protein Albumin Procalcitonin Urine Color Urine Appearance Urine pH Ur Specific Ellinger Urine Protein Urine Glucose (UA) Urine Ketones Urine Blood Urine Nitrite Ur Leukocyte Esterase Urine RBC Urine WBC Ur Squamous Epith Cells Urine Bacteria Coronavirus (PCR) Influenza Type A (PCR) Influenza Type B (PCR) RSV RNA Qual (PCR) Blood Type Antibody Screen Discharge Plan Discharge Patient Disposition: Home, Self-Care Referrals: Physician,Unknown [Primary Care Provider] - Discharge Medications: New dexamethasone [Decadron] 6 mg tablet 6 mg PO DAILY Qty: 4 RF: 0 Continued metformin 500 mg Tablet 500 mg PO BID RF: 0 Lantus Solostar U-100 Insulin 100 unit/mL (3 mL) Insulin Pen 40 unit SUBCUT BID RF: 0 donepezil [Aricept] 10 mg tablet 10 mg PO BEDTIME Qty: 30 RF: 2 Discharge Orders: Discharge Order (Routine); Ordered 04/24/20 Ordered By: Nilton Roberts Activity on Discharge: As tolerated Stand Alone Forms: Patient Portal Discharge page Visit Report Forms: Patient Portal Discharge page Care Plan Goals: recovery Health Concerns: covid Plan of Treatment: finish steroid course
[2020-04-24 12:22] LABS: Glucose, Whole Blood 304 mg/dL (60-115)
== END 2020-04-24 14:43 | disposition home or self-care (01) | DRG 177 ==
LOC: HO.ED 16:51 → HO.EDOVER 18:22 → HO.IMC 04-18 19:26
PROVIDERS: Nurse Practitioner Primary Care; Physician Assistant Medical; Admitting Provider Internal Medicine; Emergency Provider Emergency Medicine; PCP Internal Medicine; Visit Provider Internal Medicine
DX: U07.1 COVID-19 (principal); J12.82 Pneumonia due to coronavirus disease 2019; F03.91 Unspecified dementia, unspecified severity, with behavioral disturbance; E78.5 Hyperlipidemia, unspecified; E11.65 Type 2 diabetes mellitus with hyperglycemia; E11.649 Type 2 diabetes mellitus with hypoglycemia without coma; Z79.4 Long term (current) use of insulin; Z79.899 Other long term (current) drug therapy
CPT/HCPCS: 0241U; 36415; 70450; 71045; 73521; 80048; 80053; 80076; 81001; 82728; 82947; 83605; 83615; 84145; 84484; 85007; 85025; 85027; 85379; 85610; 85730; 86140; 86850; 86900; 86901; 87040; 93005; 96365; 96366; 96367; 96375; 99285; J0456; J0696; J1100; J1650; J3490

== ENCOUNTER 2021-02-23 08:51 | Emergency (ER) | payer MEDICARE, SELFPAY ==
[2021-02-23 09:07] VITALS: BP 148/93; TEMP 36.9; BMI 29.2
--- NOTE | 2021-02-23 09:18 | ED_ITS ---
HPI - GI Bleed General Chief complaint: GI Bleed Stated complaint: Rectal bleeding Time Seen by Provider: 02/23/21 09:01 Source: patient and family Mode of arrival: ambulatory Limitations: language barrier History of Present Illness HPI Narrative: 75 y/o male with history of DM on insulin, mild dementia who is presenting to the ER from home c/o 4 episodes of painless BRBPR in the last 2 weeks. He reports last episode was yesterday at 3pm. No episodes have been associated with any lightheadedness, dizziness, chest pain, or SOB. He denies fatigue or abdominal pain. He denies any similar episodes. He has never had a colonoscopy. He suffers from constipation at baseline and reports having to strain from time to time. He is not on anticoagulation. He cannot differentiate whether the bowel movement was strength red blood or if he was dripping red blood, he states the bowl just had a lot of red in it so he could tell. MD complaint: blood streaked stool and gross hematochezia Onset (ago): week(s) (2) Pain Consistency: intermittent Severity: moderate Relieving factors: none Exacerbating factors: none Associated symptoms: denies other symptoms Treatments Prior to Arrival: none Related Data Home Medications Medication Instructions Recorded Confirmed insulin glargine 100 unit/mL (3 40 unit SUBCUT BID 04/17/20 04/17/20 mL) subcutaneous pen (Lantus Solostar U-100 Insulin) metformin 500 mg tablet 500 mg PO BID 04/17/20 04/17/20 Previous Rx's Medication Instructions Recorded donepezil 10 mg tablet (Aricept) 10 mg PO BEDTIME #30 tab 04/11/20 dexamethasone 6 mg tablet 6 mg PO DAILY #4 tab 04/24/20 (Decadron) docusate sodium 100 mg capsule 100 mg PO BID #30 cap 02/23/21 (Colace) hydrocortisone 1 %-pramoxine 1 % 1 appl NC QID PRN #10 g 02/23/21 rectal foam (Proctofoam HC) Allergies Allergy/AdvReac Type Severity Reaction Status Date / Time No Known Allergies Allergy Verified 02/23/21 12:33 [No Known Allergies*] Review of Systems Review of Systems: Constitutional: No Fever, No Chills ENT/Mouth: No sore throat, No Rhinorrhea, No Swallowing Difficulty Cardiovascular: No Chest Pain, No SOB, No Orthopnea, No Edema Respiratory: No Cough, No Sputum, No Wheezing, No dyspnea Gastrointestinal: No Nausea, No Vomiting, No Diarrhea, No abdominal Pain, + He matochezia, No Melena Genitourinary: No Dysuria, No Urinary Frequency, No Hematuria Musculoskeletal: No joint pain, No Myalgias Skin: No Skin Lesions, No rash Neuro: No Weakness, No Numbness, No Dizziness, No Headache Psych: No Anxiety/Panic, No Depression Heme/Lymph: No Bruising, No Lymphadenopathy Endocrine: No Polyuria, No Polydipsia [facility] Past Medical History Medical History Asthma Diabetes HTN (hypertension) Hyperlipemia Social History Social History Household Members: Unknown / Unable to assess Housing: Apartment Unable to assess alcohol history related to: Unknown Alcohol intake: never Patient Tobacco Use Status: Never used Tobacco Use of substances other than those prescribed or required for medical reasons: No Advance Directives: No Advance Directives Information Provided: Yes service: No Current occupational status: employed Physical Exam Vital Signs: Vital Signs: Last Vital Signs Temp 98.4 F 02/23/21 09:07 Pulse 86 02/23/21 09:34 BP 148/93 H 02/23/21 09:07 Pulse Ox 95 02/23/21 09:34 BMI result Body Mass Index 29.2 Appearance: Alert. Oriented X3. No acute distress. Eyes: Pupils equal, round and reactive to light. ENT: Pharynx normal. Neck: Normal inspection. Neck supple. CVS: Normal heart rate and rhythm. Pulses normal. Respiratory: No respiratory distress. Breath sounds normal. Abdomen: Soft and nontender. +BS x4 KOMAL: uncooperative, unable to fully visualize, palpated 1cm into rectal sphin cter without palpable hemorrhoids or mass Skin: Skin warm and dry. Normal skin color. Normal skin turgor. No rashes. Extremities: No lower extremity edema. Neuro: Oriented X 3. No motor deficit. No sensory deficit. Course Course Course Narrative: 75 y/o male with history of DM, dementia who presents to the ER with painless episodes rectal bleeding x4 over the last 2 weeks. He is not tachycardic any does not have any signs of acute blood loss. Abdominal exam is benign. He is not cooperative with rectal exam so unable to assess for hemorrhoids. No bleeding since yesterday. Will plan to get basic lab workup and monitor for signs of bleeding while in the ER. Reevaluation(s) Reevaluation #1: Lab work does show a slight decrease in his blood counts however his most recent CBC that we have on file is from April when his H&H was 13.5/40.9. Today it is 10.9/33.7. He had hematocrit in the mid to high 30s back in 2019. He has had no active bleeding while in the ER. He is hemodynamically stable. At this time comfortable with discharge home with empiric treatment for hemorrhoids, close outpatient follow-up with his PCP, and follow up with GI for further evaluation. Patient was counseled to return to [facility] ER if bleeding worsens or if he develops signs or symptoms of acute blood loss anemia. Family agreeable with plan, stable for DC home MDM - GI Bleed Lab Data Result diagrams: 02/23/21 09:29 02/23/21 09:29 Labs: Lab Results 02/23/21 02/23/21 02/23/21 Range/Units 09:29 09:29 09:29 WBC 7.7 (4.8-10.8) X10*3/uL RBC 3.48 L (4.60-5.80) X10*6/uL Hgb 10.9 L (14.0-18.0) g/dl Hct 33.7 L (42.0-52.0) % MCV 96.8 (80.0-98.0) fL MCH 31.3 (27.0-33.0) pg MCHC 32.3 (31.0-36.0) g/dl RDW 12.7 (11.0-16.0) % Plt Count 205 (160-400) X10*3/uL MPV 11.0 (9.4-12.4) fL Immature Gran % (Auto) 0.3 (0.0-0.4) % Neut % (Auto) 68.6 (45-73) % Lymph % (Auto) 19.9 L (20-40) % Bureau % (Auto) 6.8 (2-11) % Eos % (Auto) 3.9 (0-4) % Baso % (Auto) 0.5 (0-2) % Lymph # (Auto) 1.5 (1.2-4.9) X10*3/uL Bureau # (Auto) 0.5 (0.1-1.2) X10*3/uL Eos # (Auto) 0.3 (0.0-0.4) X10*3/uL Baso # (Auto) 0.0 (0.0-0.2) X10*3/uL Abs Immat Gran (auto) 0.02 (0.00-0.03) X10*3/uL Absolute Neuts (auto) 5.3 (2.0-8.3) x10*3/uL Absolute Nucleated RBC 0.000 (0.0-0.012) X10*3/uL Nucleated RBC % (auto) 0.0 (0.0-0.2) /100WBC PT 13.5 H (9.9-13.0) SEC INR 1.2 H (0.9-1.1) APTT 31.0 (24.1-38.0) SEC Sodium 139 (135-145) mmol/L Potassium 4.2 (3.3-5.1) mmol/L Chloride 104 (96-108) mmol/L Carbon Dioxide 25 (22-29) mmol/L Anion Gap 14 (12-20) BUN 18 H (9-16) mg/dL Creatinine 1.22 (0.5-1.4) mg/dL Estim Creat Clear Calc 50.6 Estimated GFR 58 POC Glucose (60-115) mg/dL Random Glucose 410 H* (60-115) mg/dL Calcium 9.2 D (8.4-10.2) mg/dL 02/23/21 Range/Units 11:58 WBC (4.8-10.8) X10*3/uL RBC (4.60-5.80) X10*6/uL Hgb (14.0-18.0) g/dl Hct (42.0-52.0) % MCV (80.0-98.0) fL MCH (27.0-33.0) pg MCHC (31.0-36.0) g/dl RDW (11.0-16.0) % Plt Count (160-400) X10*3/uL MPV (9.4-12.4) fL Immature Gran % (Auto) (0.0-0.4) % Neut % (Auto) (45-73) % Lymph % (Auto) (20-40) % Bureau % (Auto) (2-11) % Eos % (Auto) (0-4) % Baso % (Auto) (0-2) % Lymph # (Auto) (1.2-4.9) X10*3/uL Bureau # (Auto) (0.1-1.2) X10*3/uL Eos # (Auto) (0.0-0.4) X10*3/uL Baso # (Auto) (0.0-0.2) X10*3/uL Abs Immat Gran (auto) (0.00-0.03) X10*3/uL Absolute Neuts (auto) (2.0-8.3) x10*3/uL Absolute Nucleated RBC (0.0-0.012) X10*3/uL Nucleated RBC % (auto) (0.0-0.2) /100WBC PT (9.9-13.0) SEC INR (0.9-1.1) APTT (24.1-38.0) SEC Sodium (135-145) mmol/L Potassium (3.3-5.1) mmol/L Chloride (96-108) mmol/L Carbon Dioxide (22-29) mmol/L Anion Gap (12-20) BUN (9-16) mg/dL Creatinine (0.5-1.4) mg/dL Estim Creat Clear Calc Estimated GFR POC Glucose 168 H (60-115) mg/dL Random Glucose (60-115) mg/dL Calcium (8.4-10.2) mg/dL Critical Care Time Critical Care Time Critical Care Time: No Discharge Plan Discharge Clinical Impression: Acute lower gastrointestinal bleeding, Hyperglycemia due to diabetes mellitus Patient Disposition: Home, Self-Care Instructions: Rectal Bleeding (ED), Diabetic Hyperglycemia (ED) Additional Instructions: Your blood work today showed some mild anemia. This may be due to GI bleeding and blood loss. There is no evidence of active GI bleeding at this time. Your bleeding may be due to hemorrhoids. Recommend using the topical Proctofoam as prescribed. Increase your fluid and fiber intake. It is important to prevent constipation. Take the prescribed Colace to help soften her stool. Recommend following up with GI for further evaluation. Name and number below. If you develop recurrent bleeding or develops lightheadedness, dizziness, shortness of breath or chest pain associated with this call 911 or come back to the ER for further evaluation. Crooks an?lisis de yazmin de hoy mostr? algo de anemia leve. Elton puede deberse a hemorragia gastrointestinal y p?rdida de yazmin. No hay evidencia de hemorragia digestiva activa en yuridia momento. Crooks sangrado puede deberse a hemorroides. Recomiende usar Proctofoam t?naomie seg?n lo prescrito. Aumente la ingesta de l?quidos y fibra. Es importante prevenir el estre?imiento. [place] el Colace recetado para ayudar a ablandar serafin heces. Recomendar seguimiento con GI para remedios evaluaci?n adicional. Nombre y n?peri a continuaci?n. Si presenta sangrado recurrente o aturdimiento, mareos, dificultad para respirar o dolor en el pecho asociado con esta llamada, llame al 911 o regrese a la tejal de emergencias para remedios evaluaci?n adicional. Prescriptions: New docusate sodium [Colace] 100 mg capsule 100 mg PO BID Qty: 30 RF: 0 Proctofoam HC 1-1 % foam 1 appl NC QID PRN (Reason: hemorrhoids) Qty: 10 RF: 0 No Action metformin 500 mg Tablet 500 mg PO BID RF: 0 Lantus Solostar U-100 Insulin 100 unit/mL (3 mL) Insulin Pen 40 unit SUBCUT BID RF: 0 dexamethasone [Decadron] 6 mg tablet 6 mg PO DAILY Qty: 4 RF: 0 donepezil [Aricept] 10 mg tablet 10 mg PO BEDTIME Qty: 30 RF: 2 Referrals: Leighann Manriquez MD [Physician] - 2 days (Rectal bleeding) Interventions: ED Discharge Assessment Last Done: 02/23/21 12:36 Discharge Date/Time: 02/23/21 12:37 Print Language: [place]
[2021-02-23 09:34] VITALS: PULSE 86; O2SAT 95
[2021-02-23 09:40] LABS: MANUAL DIFF FLAG NO
[2021-02-23 09:43] LABS: Basophils Percent Auto 0.5 % (0-2); Eosinophils Absolute Auto 0.3 X10*3/uL (0.0-0.4); Eosinophils Percent Auto 3.9 % (0-4); Hematocrit 33.7 % (42.0-52.0); Hemoglobin 10.9 g/dl (14.0-18.0); Imm Gran Abs Auto 0.02 X10*3/uL (0.00-0.03); Imm Gran Pct Auto 0.3 % (0.0-0.4); Lymphocytes Absolute Auto 1.5 X10*3/uL (1.2-4.9); Lymphocytes Percent Auto 19.9 % (20-40); Mean Corpuscular HGB Conc 32.3 g/dl (31.0-36.0); Mean Corpuscular Hemoglobin 31.3 pg (27.0-33.0); Mean Corpuscular Volume 96.8 fL (80.0-98.0); Monocytes Absolute Auto 0.5 X10*3/uL (0.1-1.2); Monocytes Percent Auto 6.8 % (2-11); Neutrophils Absolute Auto 5.3 x10*3/uL (2.0-8.3); Neutrophils Percent Auto 68.6 % (45-73); Platelet Count 205 X10*3/uL (160-400); Red Blood Count 3.48 X10*6/uL (4.60-5.80); Red Cell Distribution Width 12.7 % (11.0-16.0); White Blood Count 7.7 X10*3/uL (4.8-10.8)
[2021-02-23 09:54] LABS: INTERNATIONAL NORM RATIO 1.2 (0.9-1.1); Prothrombin Time 13.5 SEC (9.9-13.0)
[2021-02-23 09:58] LABS: Anion Gap 14 (12-20); Blood Urea Nitrogen 18 mg/dL (9-16); Calcium 9.2 mg/dL (8.4-10.2); Carbon Dioxide 25 mmol/L (22-29); Chloride 104 mmol/L (96-108); Creatinine Clr Calc Pharmacy 50.6; Estimated Glomerular Filt Rate 58; Glucose Random 410 mg/dL (60-115); Potassium 4.2 mmol/L (3.3-5.1); Sodium 139 mmol/L (135-145)
[2021-02-23] MEDS: Insulin Lispro 100 UNIT/ML 3 ML VIAL 12 UNIT SUBCUT (10:18)
--- NOTE | 2021-02-23 10:18 | PC.NURSE ---
pt states he didn't use sliding scale insulin this am.
[2021-02-23 12:02] LABS: Glucose, Whole Blood 168 mg/dL (60-115)
== END 2021-02-23 12:37 | disposition home or self-care (01) ==
PROVIDERS: Physician Assistant; Emergency Provider Emergency Medicine; PCP Internal Medicine
DX: K92.2 Gastrointestinal hemorrhage, unspecified (principal); E11.65 Type 2 diabetes mellitus with hyperglycemia; Z79.899 Other long term (current) drug therapy
CPT/HCPCS: 36415; 80048; 82947; 85025; 85610; 85730; 99283; 99284

== ENCOUNTER 2023-10-03 14:23 | Emergency (ER) | payer OTHER, SELFPAY ==
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
--- NOTE | ~2023-10-03 | CT_ITS ---
EXAMINATION: CT HEAD WITHOUT CONTRAST CT CERVICAL SPINE WITHOUT CONTRAST CLINICAL INFORMATION: 78-year-old male with headache and neck pain COMPARISON: CT head from 04/11/2020 TECHNIQUE: Contiguous axial imaging was performed from the skull base to vertex without intravenous administration of contrast. Contiguous axial imaging was performed from the upper chest through the skull base without intravenous administration of contrast. Coronal and sagittal reformats were obtained at the acquisition workstation. This CT examination was performed using dose optimization techniques as appropriate, variously including the following: *Automated exposure control. *Adjustment of mA and/or kV according to patient size (this includes techniques or standardized protocols for targeted exams where dose is matched to indication/reason for exam; i.e. extremities or head). *Use of iterative reconstruction technique. DLP: 772.074 mGy-cm for brain and 415.18 for cervical spine mGy-cm FINDINGS: Head: There is no evidence of acute intracranial hemorrhage or edematous territorial infarction. Yeh-white matter differentiation is preserved. Sulci, ventricles are prominent and they are marked periventricular white matter changes as a sequela of microangiopathy. No evidence of hydrocephalus or extra-axial fluid collection.. No acute soft tissue or osseous abnormalities. There is stable opacification of left mastoid air cells and visualized paranasal sinuses are clear. Cervical Spine: The atlantooccipital and atlantoaxial articulations remain well aligned there are multilevel degenerative changes with arm grade 1 anterior listhesis of C4 over C5, and C5 over C6 and all almost complete fusion of C6-C7 intervertebral disc space. There is no spinal canal stenosis. Neuroforamina are not encroached. The thyroid gland and remaining cervical soft tissues are within normal limits. The lung apices demonstrate no abnormalities. CT/CT cervical spine wo IV con IMPRESSION: 1. No acute intracranial pathology. 2. No acute cervical spine abnormalities. 3. Chronic left mastoiditis. 4. Chronic multilevel degenerative changes of the cervical spine. 5. 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
[2023-10-03 14:33] VITALS: BP 132/70; PULSE 90; O2SAT 94
[2023-10-03 14:40] VITALS: BP 142/81; PULSE 78; RESP 20; TEMP 36.8; O2SAT 91; BMI 29.2
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
[2023-10-03 16:45] VITALS: BP 142/73; PULSE 64; RESP 18; TEMP 36.8; O2SAT 92
[2023-10-03 18:36] VITALS: BP 00/00; PULSE 0; RESP 0; TEMP -17.7; TEMP 0; O2SAT 0
== END 2023-10-03 18:37 | disposition home or self-care (01) ==
PROVIDERS: Emergency Provider Emergency Medicine Emergency Medical Services
DX: M54.2 Cervicalgia (principal); M25.562 Pain in left knee; M25.561 Pain in right knee; R51.9 Headache, unspecified; M54.50 Low back pain, unspecified
CPT/HCPCS: 70450; 72100; 72125; 73560; 99284